=== PATIENT | male | born 1970 | race Caucasian/White ===

== ENCOUNTER → 2019-11-07 11:00 | Outpatient (BNVA) | payer MEDICARE, OTHER, SELFPAY | PROVIDERS: Family Provider Family Medicine; Visit Provider Nurse Practitioner Family | DX: I10 Essential (primary) hypertension (principal); E11.9 Type 2 diabetes mellitus without complications | CPT/HCPCS: 80053; 80061; 82043; 83036; 84439; 84443 ==

== ENCOUNTER → 2019-12-01 13:52 | Outpatient (BNVA) | payer MEDICARE, OTHER, SELFPAY | PROVIDERS: Family Provider Family Medicine; Visit Provider Nurse Practitioner Family | DX: N52.9 Male erectile dysfunction, unspecified (principal); Z12.5 Encounter for screening for malignant neoplasm of prostate | CPT/HCPCS: 84153; 84403 ==

== ENCOUNTER 2020-04-19 12:38 | Outpatient (CLI) | payer MEDICARE, OTHER, SELFPAY ==
--- NOTE | 2020-04-19 13:30 | USCV_ITS ---
Nicola Coyle Age: 50 Gender: M : 1970 Exam Date: 04/19/2020 13:19 Ordering Phys: Laron Erazo MD ([email or web address]) Technologist: Nicolette Pop Exam Location: [facility] [place] Indication: HISTORY OF CAD BP: 112 / 60 HR: 83 Rhythm: Sinus Technical Quality: Adequate MEASUREMENTS (Male / Female) Normal Values 2D ECHO LV Diastolic Diameter PLAX 4.2 cm 4.2 - 5.9 / 3.9 - 5.3 cm LV Systolic Diameter PLAX 3.2 cm LV Chamber Size 3.5 cm IVS Diastolic Thickness 1.4 cm 0.6 - 1.0 / 0.6 - 0.9 cm IVS Systolic Thickness 2.3 cm LVPW Diastolic Thickness 1.3 cm 0.6 - 1.0 / 0.6 - 0.9 cm LVPW Systolic Thickness 1.6 cm RV Chamber Size 2.7 cm LVOT Diameter 2.0 cm LV Ejection Fraction 2D Teich 48.5 % LV Ejection Fraction MOD 2C 56.9 % LV Ejection Fraction 2C AL 56.2 % LA Diameter 4.0 cm LA Width 2.6 cm LA Height 4.0 cm RA Width 2.6 cm RA Height 4.0 cm Aorta at Sinotubular Diameter 3.1 cm M-MODE LV Diastolic Diameter MM 5.6 cm 4.2 - 5.9 / 3.9 - 5.3 cm LV Systolic Diameter MM 2.9 cm LV Ejection Fraction MM Teich 79.4 % IVS Diastolic Thickness MM 0.8 cm 0.6 - 1.0 / 0.6 - 0.9 cm IVS Systolic Thickness MM 1.8 cm LVPW Diastolic Thickness MM 0.8 cm 0.6 - 1.0 / 0.6 - 0.9 cm LVPW Systolic Thickness MM 2.0 cm Aortic Annulus Diameter 3.5 cm LA Ao Ratio MM 1.2 MV E Point Septal Separation 0.5 cm DOPPLER AV Peak Velocity 115.0 cm/s LVOT Peak Velocity 78.0 cm/s AV Area Cont Eq vti 2.7 cm squared AV Area Cont Eq pk 2.2 cm squared MV Area PHT 4.9 cm squared Mitral E to A Ratio 0.8 MV E' Velocity 30.5 cm/s Mitral E to MV E' Ratio 6.5 Mitral E to LV E' Lateral Ratio 5.4 Mitral E to LV E' Septal Ratio 8.5 TR Peak Velocity 104.4 cm/s TR Peak Gradient 4.4 mmHg TR Mean Velocity 72.0 cm/s TR Mean Gradient 2.3 mmHg TR Velocity Time Integral 22.4 cm TV Peak E Velocity 70.0 cm/s Right Atrial Pressure 3.0 mmHg Pulmonary Artery Systolic Pressu 7.4 mmHg PV Peak Velocity 97.0 cm/s RV Acceleration Time 0.1 s RV Ejection Time 0.3 s RV AcT/ET 0.5 FINDINGS Left Ventricle Diffuse hypokinesia of the septum, inferior wall and the LV apex. LV ejection fraction around 45- 50%.Grade I/IV diastolic dysfunction (abnormal relaxation filling pattern), normal to mildly elevated filling pressures. Right Ventricle The right ventricle is normal in size and function. Right Atrium The right atrium is normal in size. Left Atrium The left atrium is normal in size. Mitral Valve Mild mitral annular calcification. Aortic Valve No gross abnormalities noted Tricuspid Valve No gross abnormalities noted Pulmonic Valve Pulmonic valve not well visualized. Pericardium Normal pericardium without effusion. Aorta Normal ascending aorta dimension. CONCLUSIONS Normal LV size with slightly diminished ejection fraction of 45 to 50%. Multiple wall motion normalities as mentioned above. Type I diastolic dysfunction. Mild mitral annular calcification. No significant stenotic or regurgitant lesions. There is no pericardial effusion. There are no intracardiac masses. No previous study is available for comparison. Dr Laron Erazo MD [facility] (Electronically Signed) Final Date: 19 April 2020 17:31 S
== END 2020-04-19 12:39 | disposition home or self-care (01) ==
LOC: US 12:39
PROVIDERS: PCP Nurse Practitioner; Visit Provider Internal Medicine Cardiovascular Disease
DX: R07.89 Other chest pain (principal); I25.10 Atherosclerotic heart disease of native coronary artery without angina pectoris
CPT/HCPCS: 93306

== ENCOUNTER → 2021-05-05 09:23 | Outpatient (BNVA) | payer MEDICARE, OTHER, SELFPAY | PROVIDERS: PCP Nurse Practitioner; Visit Provider Specialist | DX: M25.562 Pain in left knee (principal); Z96.651 Presence of right artificial knee joint | CPT/HCPCS: 73560; 73565 ==

== ENCOUNTER 2021-05-15 15:47 | Emergency (ER) | payer MEDICARE, OTHER, SELFPAY ==
[2021-05-15 16:05] VITALS: BP 127/85; PULSE 82; RESP 18; TEMP 36.9; O2SAT 97; BMI 30.8
--- NOTE | 2021-05-15 16:17 | ED_ITS ---
Documented by User: HELEN Turcios 05/15/21 16:20 HPI - Back Pain/Injury General: Chief Complaint: Back Pain/Injury Stated Complaint: Back/Neck pain Time Seen by Provider: 05/15/21 16:10 History of Present Illness: Patient states he received back injections from Dr. Mahan yesterday at the pain clinic. Patient said he received total 6 injections for his chronic back pain. He said it been many years previously had injections done never had a problem. Patient states today he woke up with severe back pain radiating all the way up to the spine and to his neck has a severe headache he says that he cannot turn his head without pain. He said he feels like some is trying to pull his spine out his body. Patient has been in contact Dr. Mahan's office x2 today and they told him come up to the ER. Associated symptoms: Deny abdominal pain, chills, fever(s), nausea or vomiting Review of Systems Narrative: Patient said he had chills today. Const: Denies: fever(s), chills or body aches Eyes: Denies: eye discomfort ENMT: Denies: throat pain Card: Denies: chest pain Resp: Denies: dyspnea GI: Denies: abdominal pain, nausea or vomiting Musc: Reports: neck pain (Not wanting to move neck.) and back pain (Says back hurts all way from the base all the way up into his neck and that) Skin/Breast: Denies: rash Neuro: Denies: headache(s) Psych: Denies: depression or suicidal ideation PFSH ED PFSH: Medical History Anxiety History of LA (myocardial infarction) History of polyneuropathy Hx of hyperlipidemia Insomnia disorder Lung nodule Rectal fistula Surgical History H/O total knee replacement History of foot surgery History of rectal surgery History of testicular surgery Hx of appendectomy Hx of shoulder surgery Hx of tonsillectomy Hx of umbilical hernia repair Family History Mother Cancer Diabetes Denies family history of CAD (coronary artery disease) Clotting disorder Dementia Chronic kidney disease (CKD) Suicide Anesthesia complication Bleeding disorder Lung disease Stroke Social History Smoking and tobacco status: current every day smoker cigarettes Packs smoked per day: 1 Alcohol intake: never Physical Exam Const: COMMON NORMALS: no acute distress, patient oriented x3 and alert HENMT: COMMON NORMALS: normocephalic and external ears normal HEAD & SCALP: normocephalic EXTERNAL EAR: Yes external ears normal Eye: COMMON NORMALS: EOMs intact bilaterally Neck/C-Spine: COMMON NORMALS: no JVD Resp: COMMON NORMALS: normal respiratory effort and No use of accessory muscles Cardio: COMMON NORMALS: no JVD GI: INSPECTION: Yes normal to inspection Back/Pelvis: GENERAL BACK: Yes other (Patient complains about tenderness all the way up and down his spine into h) Extremity: COMMON NORMALS: normal to inspection and full ROM Neuro: COMMON NORMALS: patient oriented x3 SENSORIUM/ORIENTATION: Yes alert Psych: COMMON NORMALS: mental status grossly normal Skin: COMMON NORMALS: no rashes or lesions noted GENERAL SKIN EXAM: no rashes or lesions noted Course Vital Signs: Vital signs: Vital Signs Temperature 98.5 F 05/15/21 16:05 Pulse Rate 69 05/15/21 22:33 Respiratory Rate 15 05/15/21 22:33 Blood Pressure 132/76 05/15/21 22:33 Pulse Oximetry 98 05/15/21 22:33 MDM - Back Pain/Injury Labs : 05/15/21 14:48 05/15/21 14:48 Radiology Impressions Lumbar Spine MRI 05/15/21 18:19 IMPRESSION: 1. Epidural space is unremarkable. No epidural hematoma or fluid collection demonstrated. 2. Spondylosis at L3-L4 results in mild spinal canal stenosis and mild bilateral neural foraminal stenosis. 3. Spondylosis at L4-L5 results in moderate spinal canal stenosis and moderate bilateral neural foraminal stenosis. 4. Spondylitic change at L5-S1 results in mild to moderate bilateral neural foraminal stenosis. No foraminal stenosis noted. Laboratory Results WBC 12.9 10^3/uL (4.0-10.0) H 05/15/21 14:48 RBC 5.30 10^6/uL (4.1-5.3) 05/15/21 14:48 Hgb 16.3 g/dL (11.7-16.6) 05/15/21 14:48 Hct 48.1 % (42.0-52.0) 05/15/21 14:48 MCV 90.8 fl (80-94) 05/15/21 14:48 MCH 30.8 pg (28.0-34.0) 05/15/21 14:48 MCHC 33.9 g/dL (30.0-36.0) 05/15/21 14:48 RDW 12.7 % (12.1-15.1) 05/15/21 14:48 Plt Count 379 10^3/cmm (130-400) 05/15/21 14:48 MPV 10.0 fL (7.4-10.4) 05/15/21 14:48 Neut % (Auto) 56.5 % 05/15/21 14:48 Lymph % (Auto) 34.5 % 05/15/21 14:48 [place] % (Auto) 6.4 % 05/15/21 14:48 Eos % (Auto) 1.7 % 05/15/21 14:48 Baso % (Auto) 0.6 % 05/15/21 14:48 Neut # (Auto) 7.27 10^3/uL (1.8-7.7) 05/15/21 14:48 Lymph # (Auto) 4.5 10^3/uL (0.8-4.8) 05/15/21 14:48 [place] # (Auto) 0.8 10^3/uL (0.2-0.9) 05/15/21 14:48 Eos # (Auto) 0.2 10^3/uL (0.0-0.8) 05/15/21 14:48 Baso # (Auto) 0.1 10^3/uL (0.0-0.1) 05/15/21 14:48 Nucleated RBC % (auto) 0 % 05/15/21 14:48 Nucleated RBCs # 0.0 /100WBC 05/15/21 14:48 Sodium 133 mmol/L (136-145) L 05/15/21 14:48 Potassium 5.0 mmol/L (3.5-5.1) 05/15/21 14:48 Chloride 95 mmol/L (98-107) L 05/15/21 14:48 Carbon Dioxide 26 mmol/L (22-29) 05/15/21 14:48 Anion Gap 17.0 (5-19) 05/15/21 14:48 BUN 26 mg/dL (6-20) H 05/15/21 14:48 Creatinine 1.4 mg/dL (0.7-1.2) H 05/15/21 14:48 GFR Calculation 53.6 mL/min (90-130) L 05/15/21 14:48 Glucose 155 mg/dL (65-115) H 05/15/21 14:48 Calculated Osmolality 284 mOsm/kg (285-295) L 05/15/21 14:48 Calcium 9.7 mg/dL (8.5-10.5) 05/15/21 14:48 C-Reactive Protein 24.1 mg/L (0.0-4.9) H 05/15/21 14:48 Urine Color Yellow (Yellow) 05/15/21 18:00 Urine Appearance Clear (CLEAR) 05/15/21 18:00 Urine pH 5 (5-7) 05/15/21 18:00 Ur Specific [place] 1.020 (1.005-1.030) 05/15/21 18:00 Urine Protein Neg (Negative) 05/15/21 18:00 Urine Glucose (UA) 4+ (Normal) H 05/15/21 18:00 Urine Ketones Negative (Negative) 05/15/21 18:00 Urine Blood Neg (Negative) 05/15/21 18:00 Urine Nitrate Negative (Negative) 05/15/21 18:00 Urine Bilirubin Neg (Negative) 05/15/21 18:00 Urine Urobilinogen 1 mg/dL (Negative) H 05/15/21 18:00 Ur Leukocyte Esterase Negative (Negative) 05/15/21 18:00 CSF Appearance Clear (CLEAR) 05/15/21 22:05 CSF Color Colorless (COLORLESS) 05/15/21 22:05 CSF WBC 3 /uL (0-5) 05/15/21 22:05 CSF RBC 0 10^3/uL (0-0) 05/15/21 22:05 CSF Mononuclear # Auto 0.003 10^3/uL (50-90) L 05/15/21 22:05 CSF Mononuclear WBCs % 100 % (50-90) H 05/15/21 22:05 CSF Polynuclear WBCs # 0.000 10^3/uL (0-10) 05/15/21 22:05 CSF Polynuclear WBCs % 0 % (0-10) 05/15/21 22:05 CSF Diff Comment Yes 05/15/21 22:05 CSF Glucose 111 mg/dL (40-70) H 05/15/21 22:05 CSF Total Protein 46 mg/dL (15-45) H 05/15/21 22:05 Discharge Plan Discharge Patient Disposition: Home Clinical Impression: Back pain Qualifiers: Back pain location: back pain in unspecified location Chronicity: acute Back pain laterality: midline Qualified Code(s): M54.9 - Dorsalgia, unspecified Condition: Stable Prescriptions: New cyclobenzaprine 10 mg tablet 10 mg PO TID Qty: 14 0RF hydrocodone-acetaminophen 5-325 mg tablet 1 tab PO Q4H PRN (Reason: pain) Qty: 14 0RF No Action acetaminophen [Tylenol] 325 mg capsule 325 mg PO DAILY PRN (Reason: Pain) 0RF metformin 1,000 mg tablet 1,000 mg PO BID Qty: 180 3RF sertraline 100 mg tablet 100 mg PO BID Qty: 90 3RF sildenafil [Viagra] 50 mg tablet 50 mg PO DAILY PRN (Reason: sexual activity) Qty: 30 0RF Rx Instructions: administer 30 minutes to 4 hours before activity ibuprofen 800 mg tablet 800 mg PO BID PRN (Reason: pain) Qty: 60 0RF ticagrelor 90 mg tablet 90 mg PO DAILY Qty: 90 3RF metoprolol tartrate 50 mg tablet 50 mg PO BID Qty: 180 3RF zolpidem [Ambien] 10 mg tablet 10 mg PO BEDTIME PRN (Reason: Insomnia) 0RF Label Comments: Take 1 tab po at bedtime glimepiride 2 mg tablet 2 mg PO DAILY 0RF atorvastatin 80 mg tablet 80 mg PO DAILY 0RF lisinopril 5 mg tablet 5 mg PO DAILY 0RF fenofibrate nanocrystallized 145 mg tablet 145 mg PO DAILY 0RF sitagliptin 100 mg tablet 100 mg PO DAILY 0RF Discharge Orders: Discharge ED (Routine); Ordered 05/15/21 Ordered By: Martha Wilkerson Referrals: Abelino Varma [facility] [Primary Care Provider] - Patient Instructions: Opioid Safety Coding Level of Care Code ED Nuclear Waste Management Engineer for Chg Fwd Exam Comprehensive Documented by User: ERASMO Mason 05/15/21 23:06 HPI - Back Pain/Injury General: Chief Complaint: Back Pain/Injury Stated Complaint: Back/Neck pain Time Seen by Provider: 05/15/21 16:10 PFSH ED PFSH: Medical History Anxiety History of LA (myocardial infarction) History of polyneuropathy Hx of hyperlipidemia Insomnia disorder Lung nodule Rectal fistula Surgical History H/O total knee replacement History of foot surgery History of rectal surgery History of testicular surgery Hx of appendectomy Hx of shoulder surgery Hx of tonsillectomy Hx of umbilical hernia repair Family History Mother Cancer Diabetes Denies family history of CAD (coronary artery disease) Clotting disorder Dementia Chronic kidney disease (CKD) Suicide Anesthesia complication Bleeding disorder Lung disease Stroke Social History Smoking and tobacco status: current every day smoker cigarettes Packs smoked per day: 1 Alcohol intake: never Course Vital Signs: Vital signs: Vital Signs Temperature 98.5 F 05/15/21 16:05 Pulse Rate 69 05/15/21 22:33 Respiratory Rate 15 05/15/21 22:33 Blood Pressure 132/76 05/15/21 22:33 Pulse Oximetry 98 05/15/21 22:33 MDM - Back Pain/Injury Medical Decision Making Assumed care from HELEN Turcios. Patient tells me he received lumbar injections from Dr. Mahan/pain management yesterday afternoon. He states around 2 AM that evening/morning he began having severe pain to his lower back and states it has progressively moved upward affecting his thoracic and cervical regions. He is currently rating these areas at a 9/10. In addition he also complains of a 5/10 headache. Patient has chronic lower back pain but has never had pain affecting his thoracic or cervical regions. He is not complaining of fevers. He is not having acute neurologic deficits. No visual changes. Previous provider had spoken to Dr. Landon and I to consulted with him after labs had returned. Dr. Landon assessed patient and we will plan on obtaining MRI of his lumbar spine to evaluate for epidural hematoma. Lumbar MRI shows no epidural hematoma or fluid collection. Dr. Landon recommended proceeding with LP which he performed. Please see his documentation and procedural note for this. After results he feels patient is stable for DC at this time with pain meds/muscle relaxers and follow up with pain management provider and/or PCP. Labs : 05/15/21 14:48 05/15/21 14:48 Radiology Impressions Lumbar Spine MRI 05/15/21 18:19 IMPRESSION: 1. Epidural space is unremarkable. No epidural hematoma or fluid collection demonstrated. 2. Spondylosis at L3-L4 results in mild spinal canal stenosis and mild bilateral neural foraminal stenosis. 3. Spondylosis at L4-L5 results in moderate spinal canal stenosis and moderate bilateral neural foraminal stenosis. 4. Spondylitic change at L5-S1 results in mild to moderate bilateral neural foraminal stenosis. No foraminal stenosis noted. Laboratory Results WBC 12.9 10^3/uL (4.0-10.0) H 05/15/21 14:48 RBC 5.30 10^6/uL (4.1-5.3) 05/15/21 14:48 Hgb 16.3 g/dL (11.7-16.6) 05/15/21 14:48 Hct 48.1 % (42.0-52.0) 05/15/21 14:48 MCV 90.8 fl (80-94) 05/15/21 14:48 MCH 30.8 pg (28.0-34.0) 05/15/21 14:48 MCHC 33.9 g/dL (30.0-36.0) 05/15/21 14:48 RDW 12.7 % (12.1-15.1) 05/15/21 14:48 Plt Count 379 10^3/cmm (130-400) 05/15/21 14:48 MPV 10.0 fL (7.4-10.4) 05/15/21 14:48 Neut % (Auto) 56.5 % 05/15/21 14:48 Lymph % (Auto) 34.5 % 05/15/21 14:48 [place] % (Auto) 6.4 % 05/15/21 14:48 Eos % (Auto) 1.7 % 05/15/21 14:48 Baso % (Auto) 0.6 % 05/15/21 14:48 Neut # (Auto) 7.27 10^3/uL (1.8-7.7) 05/15/21 14:48 Lymph # (Auto) 4.5 10^3/uL (0.8-4.8) 05/15/21 14:48 [place] # (Auto) 0.8 10^3/uL (0.2-0.9) 05/15/21 14:48 Eos # (Auto) 0.2 10^3/uL (0.0-0.8) 05/15/21 14:48 Baso # (Auto) 0.1 10^3/uL (0.0-0.1) 05/15/21 14:48 Nucleated RBC % (auto) 0 % 05/15/21 14:48 Nucleated RBCs # 0.0 /100WBC 05/15/21 14:48 Sodium 133 mmol/L (136-145) L 05/15/21 14:48 Potassium 5.0 mmol/L (3.5-5.1) 05/15/21 14:48 Chloride 95 mmol/L (98-107) L 05/15/21 14:48 Carbon Dioxide 26 mmol/L (22-29) 05/15/21 14:48 Anion Gap 17.0 (5-19) 05/15/21 14:48 BUN 26 mg/dL (6-20) H 05/15/21 14:48 Creatinine 1.4 mg/dL (0.7-1.2) H 05/15/21 14:48 GFR Calculation 53.6 mL/min (90-130) L 05/15/21 14:48 Glucose 155 mg/dL (65-115) H 05/15/21 14:48 Calculated Osmolality 284 mOsm/kg (285-295) L 05/15/21 14:48 Calcium 9.7 mg/dL (8.5-10.5) 05/15/21 14:48 C-Reactive Protein 24.1 mg/L (0.0-4.9) H 05/15/21 14:48 Urine Color Yellow (Yellow) 05/15/21 18:00 Urine Appearance Clear (CLEAR) 05/15/21 18:00 Urine pH 5 (5-7) 05/15/21 18:00 Ur Specific [place] 1.020 (1.005-1.030) 05/15/21 18:00 Urine Protein Neg (Negative) 05/15/21 18:00 Urine Glucose (UA) 4+ (Normal) H 05/15/21 18:00 Urine Ketones Negative (Negative) 05/15/21 18:00 Urine Blood Neg (Negative) 05/15/21 18:00 Urine Nitrate Negative (Negative) 05/15/21 18:00 Urine Bilirubin Neg (Negative) 05/15/21 18:00 Urine Urobilinogen 1 mg/dL (Negative) H 05/15/21 18:00 Ur Leukocyte Esterase Negative (Negative) 05/15/21 18:00 CSF Appearance Clear (CLEAR) 05/15/21 22:05 CSF Color Colorless (COLORLESS) 05/15/21 22:05 CSF WBC 3 /uL (0-5) 05/15/21 22:05 CSF RBC 0 10^3/uL (0-0) 05/15/21 22:05 CSF Mononuclear # Auto 0.003 10^3/uL (50-90) L 05/15/21 22:05 CSF Mononuclear WBCs % 100 % (50-90) H 05/15/21 22:05 CSF Polynuclear WBCs # 0.000 10^3/uL (0-10) 05/15/21 22:05 CSF Polynuclear WBCs % 0 % (0-10) 05/15/21 22:05 CSF Diff Comment Yes 05/15/21 22:05 CSF Glucose 111 mg/dL (40-70) H 05/15/21 22:05 CSF Total Protein 46 mg/dL (15-45) H 05/15/21 22:05 Discharge Plan Discharge Patient Disposition: Home Clinical Impression: Back pain Qualifiers: Back pain location: back pain in unspecified location Chronicity: acute Back pain laterality: midline Qualified Code(s): M54.9 - Dorsalgia, unspecified Condition: Stable Prescriptions: New cyclobenzaprine 10 mg tablet 10 mg PO TID Qty: 14 0RF hydrocodone-acetaminophen 5-325 mg tablet 1 tab PO Q4H PRN (Reason: pain) Qty: 14 0RF No Action acetaminophen [Tylenol] 325 mg capsule 325 mg PO DAILY PRN (Reason: Pain) 0RF metformin 1,000 mg tablet 1,000 mg PO BID Qty: 180 3RF sertraline 100 mg tablet 100 mg PO BID Qty: 90 3RF sildenafil [Viagra] 50 mg tablet 50 mg PO DAILY PRN (Reason: sexual activity) Qty: 30 0RF Rx Instructions: administer 30 minutes to 4 hours before activity ibuprofen 800 mg tablet 800 mg PO BID PRN (Reason: pain) Qty: 60 0RF ticagrelor 90 mg tablet 90 mg PO DAILY Qty: 90 3RF metoprolol tartrate 50 mg tablet 50 mg PO BID Qty: 180 3RF zolpidem [Ambien] 10 mg tablet 10 mg PO BEDTIME PRN (Reason: Insomnia) 0RF Label Comments: Take 1 tab po at bedtime glimepiride 2 mg tablet 2 mg PO DAILY 0RF atorvastatin 80 mg tablet 80 mg PO DAILY 0RF lisinopril 5 mg tablet 5 mg PO DAILY 0RF fenofibrate nanocrystallized 145 mg tablet 145 mg PO DAILY 0RF sitagliptin 100 mg tablet 100 mg PO DAILY 0RF Discharge Orders: Discharge ED (Routine); Ordered 05/15/21 Ordered By: Martha Wilkerson Referrals: Abelino Varma, [facility] [Primary Care Provider] - Patient Instructions: Opioid Safety Coding Level of Care Code ED Nuclear Waste Management Engineer for g Fwd Exam Comprehensive Documented by User: Jermain Landon MD 05/21/21 00:03 HPI - Back Pain/Injury General: Chief Complaint: Back Pain/Injury Stated Complaint: Back/Neck pain Time Seen by Provider: 05/15/21 16:10 PFSH ED PFSH: Medical History Anxiety History of LA (myocardial infarction) History of polyneuropathy Hx of hyperlipidemia Insomnia disorder Lung nodule Rectal fistula Surgical History H/O total knee replacement History of foot surgery History of rectal surgery History of testicular surgery Hx of appendectomy Hx of shoulder surgery Hx of tonsillectomy Hx of umbilical hernia repair Family History Mother Cancer Diabetes Denies family history of CAD (coronary artery disease) Clotting disorder Dementia Chronic kidney disease (CKD) Suicide Anesthesia complication Bleeding disorder Lung disease Stroke Social History Smoking and tobacco status: current every day smoker cigarettes Packs smoked per day: 1 Alcohol intake: never Procedures Lumbar Puncture Time Out Performed: Yes Patient Position: upright Skin Prep: 0.5% Chlorhexidine/Alcohol Local Anesthetic: lidocaine 1% Amount of anesthesia used (mL): 3 Spinal Needle Gauge: 22G Interspace Used: L3-L4 Fluid Initially Obtained: clear Complications: none Additional Comments: patient has held ticagrelor in preparation for previous days injections Course Vital Signs: Vital signs: Vital Signs Temperature 98.5 F 05/15/21 16:05 Pulse Rate 69 05/15/21 22:33 Respiratory Rate 15 05/15/21 22:33 Blood Pressure 132/76 05/15/21 22:33 Pulse Oximetry 98 05/15/21 22:33 MDM - Back Pain/Injury Medical Decision Making Assumed care from HELEN Turcios. Patient tells me he received lumbar injections from Dr. Mahan/pain management yesterday afternoon. He states around 2 AM that evening/morning he began having severe pain to his lower back and states it has progressively moved upward affecting his thoracic and cervical regions. He is currently rating these areas at a 9/10. In addition he also complains of a 5/10 headache. Patient has chronic lower back pain but has never had pain affecting his thoracic or cervical regions. He is not complaining of fevers. He is not having acute neurologic deficits. No visual changes. Previous provider had spoken to Dr. Landon and I to consulted with him after labs had returned. Dr. Landon assessed patient and we will plan on obtaining MRI of his lumbar spine to evaluate for epidural hematoma. Lumbar MRI shows no epidural hematoma or fluid collection. Dr. Landon recommended proceeding with LP which he performed. Please see his documentation and procedural note for this. After results he feels patient is stable for DC at this time with pain meds/muscle relaxers and follow up with pain management provider and/or PCP. I discussed this case with ERASMO Mason and Wiley Davis NP. I personally evaluated the patient and reperformed guerin portions of E/M. Challenging situation given the patient's recent injections. Given severity of symptoms I discussed with the patient potential etiologies. He does have leukocytosis and elevation in inflammatory markers. I discussed risks and benefits of lumbar puncture and patient provided informed consent. However, given recent procedure additional evaluation with imaging felt to be necessary to rule out complication associated with these injections. MRI is the only modality that can adequately assess this and given risk of post injection was collection mostly obtained prior to lumbar puncture. Given risk of meningitis as a time critical diagnosis MRI was obtained from the emergency department. No evidence of post injection complication. Therefore, lumbar puncture performed. Patient tolerated procedure well. No evidence of meningitis. Exact etiology of patient's symptoms is somewhat unclear. ?adverse reaction to local injections. Jermain Landon MD Emergency Medicine Labs : 05/15/21 14:48 05/15/21 14:48 Radiology Impressions Lumbar Spine MRI 05/15/21 18:19 IMPRESSION: 1. Epidural space is unremarkable. No epidural hematoma or fluid collection demonstrated. 2. Spondylosis at L3-L4 results in mild spinal canal stenosis and mild bilateral neural foraminal stenosis. 3. Spondylosis at L4-L5 results in moderate spinal canal stenosis and moderate bilateral neural foraminal stenosis. 4. Spondylitic change at L5-S1 results in mild to moderate bilateral neural foraminal stenosis. No foraminal stenosis noted. Laboratory Results WBC 12.9 10^3/uL (4.0-10.0) H 05/15/21 14:48 RBC 5.30 10^6/uL (4.1-5.3) 05/15/21 14:48 Hgb 16.3 g/dL (11.7-16.6) 05/15/21 14:48 Hct 48.1 % (42.0-52.0) 05/15/21 14:48 MCV 90.8 fl (80-94) 05/15/21 14:48 MCH 30.8 pg (28.0-34.0) 05/15/21 14:48 MCHC 33.9 g/dL (30.0-36.0) 05/15/21 14:48 RDW 12.7 % (12.1-15.1) 05/15/21 14:48 Plt Count 379 10^3/cmm (130-400) 05/15/21 14:48 MPV 10.0 fL (7.4-10.4) 05/15/21 14:48 Neut % (Auto) 56.5 % 05/15/21 14:48 Lymph % (Auto) 34.5 % 05/15/21 14:48 [place] % (Auto) 6.4 % 05/15/21 14:48 Eos % (Auto) 1.7 % 05/15/21 14:48 Baso % (Auto) 0.6 % 05/15/21 14:48 Neut # (Auto) 7.27 10^3/uL (1.8-7.7) 05/15/21 14:48 Lymph # (Auto) 4.5 10^3/uL (0.8-4.8) 05/15/21 14:48 [place] # (Auto) 0.8 10^3/uL (0.2-0.9) 05/15/21 14:48 Eos # (Auto) 0.2 10^3/uL (0.0-0.8) 05/15/21 14:48 Baso # (Auto) 0.1 10^3/uL (0.0-0.1) 05/15/21 14:48 Nucleated RBC % (auto) 0 % 05/15/21 14:48 Nucleated RBCs # 0.0 /100WBC 05/15/21 14:48 Sodium 133 mmol/L (136-145) L 05/15/21 14:48 Potassium 5.0 mmol/L (3.5-5.1) 05/15/21 14:48 Chloride 95 mmol/L (98-107) L 05/15/21 14:48 Carbon Dioxide 26 mmol/L (22-29) 05/15/21 14:48 Anion Gap 17.0 (5-19) 05/15/21 14:48 BUN 26 mg/dL (6-20) H 05/15/21 14:48 Creatinine 1.4 mg/dL (0.7-1.2) H 05/15/21 14:48 GFR Calculation 53.6 mL/min (90-130) L 05/15/21 14:48 Glucose 155 mg/dL (65-115) H 05/15/21 14:48 Calculated Osmolality 284 mOsm/kg (285-295) L 05/15/21 14:48 Calcium 9.7 mg/dL (8.5-10.5) 05/15/21 14:48 C-Reactive Protein 24.1 mg/L (0.0-4.9) H 05/15/21 14:48 Urine Color Yellow (Yellow) 05/15/21 18:00 Urine Appearance Clear (CLEAR) 05/15/21 18:00 Urine pH 5 (5-7) 05/15/21 18:00 Ur Specific [place] 1.020 (1.005-1.030) 05/15/21 18:00 Urine Protein Neg (Negative) 05/15/21 18:00 Urine Glucose (UA) 4+ (Normal) H 05/15/21 18:00 Urine Ketones Negative (Negative) 05/15/21 18:00 Urine Blood Neg (Negative) 05/15/21 18:00 Urine Nitrate Negative (Negative) 05/15/21 18:00 Urine Bilirubin Neg (Negative) 05/15/21 18:00 Urine Urobilinogen 1 mg/dL (Negative) H 05/15/21 18:00 Ur Leukocyte Esterase Negative (Negative) 05/15/21 18:00 CSF Appearance Clear (CLEAR) 05/15/21 22:05 CSF Color Colorless (COLORLESS) 05/15/21 22:05 CSF WBC 3 /uL (0-5) 05/15/21 22:05 CSF RBC 0 10^3/uL (0-0) 05/15/21 22:05 CSF Mononuclear # Auto 0.003 10^3/uL (50-90) L 05/15/21 22:05 CSF Mononuclear WBCs % 100 % (50-90) H 05/15/21 22:05 CSF Polynuclear WBCs # 0.000 10^3/uL (0-10) 05/15/21 22:05 CSF Polynuclear WBCs % 0 % (0-10) 05/15/21 22:05 CSF Diff Comment Yes 05/15/21 22:05 CSF Glucose 111 mg/dL (40-70) H 05/15/21 22:05 CSF Total Protein 46 mg/dL (15-45) H 05/15/21 22:05 Discharge Plan Discharge Patient Disposition: Home Clinical Impression: Back pain Qualifiers: Back pain location: back pain in unspecified location Chronicity: acute Back pain laterality: midline Qualified Code(s): M54.9 - Dorsalgia, unspecified Condition: Stable Prescriptions: New cyclobenzaprine 10 mg tablet 10 mg PO TID Qty: 14 0RF hydrocodone-acetaminophen 5-325 mg tablet 1 tab PO Q4H PRN (Reason: pain) Qty: 14 0RF No Action acetaminophen [Tylenol] 325 mg capsule 325 mg PO DAILY PRN (Reason: Pain) 0RF metformin 1,000 mg tablet 1,000 mg PO BID Qty: 180 3RF sertraline 100 mg tablet 100 mg PO BID Qty: 90 3RF sildenafil [Viagra] 50 mg tablet 50 mg PO DAILY PRN (Reason: sexual activity) Qty: 30 0RF Rx Instructions: administer 30 minutes to 4 hours before activity ibuprofen 800 mg tablet 800 mg PO BID PRN (Reason: pain) Qty: 60 0RF ticagrelor 90 mg tablet 90 mg PO DAILY Qty: 90 3RF metoprolol tartrate 50 mg tablet 50 mg PO BID Qty: 180 3RF zolpidem [Ambien] 10 mg tablet 10 mg PO BEDTIME PRN (Reason: Insomnia) 0RF Label Comments: Take 1 tab po at bedtime glimepiride 2 mg tablet 2 mg PO DAILY 0RF atorvastatin 80 mg tablet 80 mg PO DAILY 0RF lisinopril 5 mg tablet 5 mg PO DAILY 0RF fenofibrate nanocrystallized 145 mg tablet 145 mg PO DAILY 0RF sitagliptin 100 mg tablet 100 mg PO DAILY 0RF Discharge Orders: Discharge ED (Routine); Ordered 05/15/21 Ordered By: Martha Wilkerson Referrals: Abelino Varma FNP [Primary Care Provider] - Patient Instructions: Opioid Safety Coding Level of Care Code ED Nuclear Waste Management Engineer for Chg Fwd Exam Comprehensive
[2021-05-15] MEDS: acetaminophen 1,000 MG/100 ML PIGGYBACK 400 MG IV (16:55)
[2021-05-15 17:00] LABS: Basophils # 0.1 10^3/uL (0.0-0.1); Basophils % 0.6 %; Eosinophils # 0.2 10^3/uL (0.0-0.8); Eosinophils % 1.7 %; Hematocrit 48.1 % (42.0-52.0); Hemoglobin 16.3 g/dL (11.7-16.6); Lymphocytes # 4.5 10^3/uL (0.8-4.8); Lymphocytes % 34.5 %; Mean Corpuscular HGB Conc 33.9 g/dL (30.0-36.0); Mean Corpuscular Hemoglobin 30.8 pg (28.0-34.0); Mean Corpuscular Volume 90.8 fl (80-94); Monocytes # 0.8 10^3/uL (0.2-0.9); Monocytes % 6.4 %; Neutrophils # 7.27 10^3/uL (1.8-7.7); Neutrophils % 56.5 %; Nucleated Red Blood Cells % 0 %; Platelet Count 379 10^3/cmm (130-400); Red Cell Distribution Width 12.7 % (12.1-15.1); White Blood Count 12.9 10^3/uL (4.0-10.0)
[2021-05-15 17:12] LABS: Blood Urea Nitrogen 26 mg/dL (6-20); C Reactive Protein 24.1 mg/L (0.0-4.9); Calcium 9.7 mg/dL (8.5-10.5); Carbon Dioxide 26 mmol/L (22-29); Chloride 95 mmol/L (98-107); Glomerular Filtration Rate 53.6 mL/min (90-130); Glucose 155 mg/dL (65-115); Osmolality Calculated 284 mOsm/kg (285-295); Sodium 133 mmol/L (136-145)
--- NOTE | 2021-05-15 18:19 | MRR_ITS ---
PROCEDURE INFORMATION: Exam: MR Lumbar Spine Without Contrast Exam date and time: 05/15/2021 7:52 PM Age: 51 years old Clinical indication: Low back pain; Additional info: Severe back pain post injections, R/O fluid/complication, patient refused mri contrast - no contrast given eh TECHNIQUE: Imaging protocol: Multiplanar magnetic resonance images of the lumbar spine without intravenous contrast. COMPARISON: No relevant prior studies available. FINDINGS: Vertebrae: Unremarkable. Spinal epidural space: Epidural space is unremarkable. No epidural hematoma or fluid collection demonstrated. Spinal cord: Normal signal. No cord compression. T12-L1: Normal disc height and signal intensity. No disc bulge or protrusion. No spinal canal or neural foraminal stenosis. L1-L2: Normal disc height and signal intensity. No disc bulge or protrusion. No spinal canal or neural foraminal stenosis. L2-L3: Normal disc height and signal intensity. No disc bulge or protrusion. Mild hypertrophic facet joint changes. No spinal canal or neural foraminal stenosis. L3-L4: Normal disc height and signal intensity. No disc bulge or protrusion. Hypertrophic facet joint changes are noted. There is mild spinal canal stenosis and mild bilateral neural foraminal stenosis associated. No spinal canal or neural foraminal stenosis. L4-L5: Normal disc height. No disc bulge. Hypertrophic facet joint changes and redundancy of the ligamentum flavum noted. Moderate spinal stenosis and moderate bilateral neural foraminal stenosis noted. L5-S1: Normal disc height. No disc bulge or protrusion. Hypertrophic facet joint changes. No spinal canal stenosis. Mild to moderate bilateral neural foraminal stenosis noted. Soft tissues: Unremarkable. MR/MR lumbar spine wo con* [id number] IMPRESSION: 1. Epidural space is unremarkable. No epidural hematoma or fluid collection demonstrated. 2. Spondylosis at L3-L4 results in mild spinal canal stenosis and mild bilateral neural foraminal stenosis. 3. Spondylosis at L4-L5 results in moderate spinal canal stenosis and moderate bilateral neural foraminal stenosis. 4. Spondylitic change at L5-S1 results in mild to moderate bilateral neural foraminal stenosis. No foraminal stenosis noted.
[2021-05-15 18:59] VITALS: BP 128/78; PULSE 67; RESP 15; O2SAT 100
[2021-05-15 19:06] LABS: Add Urine Microscopic? NO; Charge for UA Resulting for Rev
[2021-05-15 19:08] VITALS: RESP 18
[2021-05-15] MEDS: morphine 4 mg/mL SDV 1 mL IVP ×2 (19:08→21:51)
[2021-05-15 19:18] LABS: Bilirubin Urine Neg (Negative); Blood Urine Neg (Negative); Glucose Urine UA 4+ (Normal); Ketones Urine Negative (Negative); Leukocyte Esterase Urine Negative (Negative); Nitrate Urine Negative (Negative); Protein Urine Neg (Negative); Urine Appearance Clear (CLEAR); Urine Color Yellow (Yellow); Urobilinogen Urine 1 mg/dL (Negative); pH Urine 5 (5-7)
[2021-05-15 21:51] VITALS: RESP 16; O2SAT 98
[2021-05-15 21:53] VITALS: BP 161/96; PULSE 86; RESP 16; O2SAT 99
[2021-05-15 22:22] LABS: CSF Mononuclear # 0.003 10^3/uL (50-90); Mononuclear WBC CSF % 100 % (50-90); Polynuclear WBC CSF % 0 % (0-10); Red Blood Cell CSF 0 10^3/uL (0-0); White Blood Cell CSF 3 /uL (0-5)
[2021-05-15 22:33] VITALS: BP 132/76; PULSE 69; RESP 15; O2SAT 98
[2021-05-15 22:33] LABS: Appearance CSF CLEAR (CLEAR); Color CSF COLORLESS (COLORLESS)
[2021-05-15 22:39] LABS: Glucose CSF 111 mg/dL (40-70); Total Protein CSF 46 mg/dL (15-45)
[2021-05-15 23:03] LABS: Pathology Referral Yes
[2021-05-15] MEDS: HYDROcodone-acetaminophen 5-325 mg Tablet 2 TAB PO (23:14)
== END 2021-05-15 23:32 | disposition home or self-care (01) ==
PROVIDERS: Emergency Medicine; Nurse Practitioner Family; Emergency Provider Physician Assistant; PCP Nurse Practitioner
DX: M54.9 Dorsalgia, unspecified (principal); Z79.84 Long term (current) use of oral hypoglycemic drugs; I25.2 Old myocardial infarction; E78.5 Hyperlipidemia, unspecified; F17.210 Nicotine dependence, cigarettes, uncomplicated
CPT/HCPCS: 72148; 80048; 80503; 81003; 82945; 84157; 85025; 86140; 87070; 87075; 87205; 88108; 89050; 96374; 96375; 96376; 99284; J2270

== ENCOUNTER 2021-06-12 06:01 | Day surgery (SDC) | payer MEDICARE, OTHER, SELFPAY ==
[2021-06-10 08:23] VITALS: BMI 31.5
[2021-06-12 06:21] VITALS: BP 142/79; PULSE 81; RESP 18; TEMP 36.3; O2SAT 97
[2021-06-12] MEDS: sodium chloride 0.9% 1,000 ML 30 ML IV (06:25)
--- NOTE | 2021-06-12 06:27 | W.PM.OPSFHP ---
Same Day Surgery H&P Indication for Procedure/HPI DATE OF PROCEDURE: June 12, 2021 CHIEF COMPLAINT/INDICATIONFOR SURGICAL PROCEDURE: History of colon polyps PREOP DIAGNOSIS: History of colon polyps PLANNED PROCEDURE: Operation Date: 06/12/21 07:30 Proposed Procedures p Colonoscopy 90205/z86.010(Not Applicable) - Jorge Alberto Scales MD 03/24/2021 This is a pleasant 51 years old gentleman with extensive history of colon polyps, so far he had 4 colonoscopies in back in 2007 he had a large tubular adenoma per his description and he would get every 3 years surveillance colonoscopy.? Patient denies bleeding per rectum or history of colon cancer nonintentional weight loss.? Last colonoscopy was done about 3 years and a half and 6 polyps were removed. 06/12/2021 Patient comes today for surveillance colonoscopy ROS All systems have been reviewed negative except as per the above or per problem list Medications/Allergies* Home Medications Medication Instructions Recorded Confirmed Type acetaminophen 325 mg capsule 325 mg PO DAILY PRN 03/21/19 06/10/21 History (Tylenol) zolpidem 10 mg tablet (Ambien) 10 mg PO BEDTIME PRN tab 05/05/21 06/10/21 History atorvastatin 80 mg tablet 80 mg PO DAILY 05/15/21 06/10/21 History fenofibrate nanocrystallized 145 145 mg PO DAILY 05/15/21 06/10/21 History mg tablet glimepiride 2 mg tablet 2 mg PO DAILY 05/15/21 06/10/21 History lisinopril 5 mg tablet 5 mg PO DAILY 05/15/21 06/10/21 History sitagliptin 100 mg tablet (Januvia) 100 mg PO DAILY 05/15/21 06/10/21 History ticagrelor 90 mg tablet (Brilinta) 90 mg PO DAILY 06/10/21 06/10/21 History Allergies/Adverse Reactions Allergy/AdvReac Type Severity Reaction Status Date / Time Iodinated Contrast Media Allergy Severe ALGY-Anaphy Verified 06/12/21 06:28 laxis penicillamine Allergy Severe ALGY-Anaphy Verified 06/12/21 06:28 laxis quetiapine [From Seroquel] Allergy Unknown Verified 06/12/21 06:28 calcium [From DHEA] AdvReac Intermediate tachycardia Verified 06/12/21 06:28 calcium carbonate [From DHEA] AdvReac Intermediate tachycardia Verified 06/12/21 06:28 chlorpromazine AdvReac Intermediate tachycardia Verified 06/12/21 06:28 [From Thorazine] ketorolac [From Toradol] AdvReac Intermediate High HR Verified 06/12/21 06:28 prasterone (DHEA) [From DHEA] AdvReac Intermediate tachycardia Verified 06/12/21 06:28 simvastatin [From Zocor] AdvReac Intermediate elevated Verified 06/12/21 06:28 lft Sulfa (Sulfonamide AdvReac Intermediate Nausea Verified 06/12/21 06:28 Antibiotics) diarrhea Pertinent History/Comorbid Conditions* Medical History (Updated 05/23/21 @ 00:01 by ) Anxiety History of RI (myocardial infarction) History of polyneuropathy Hx of hyperlipidemia Insomnia disorder Lung nodule Rectal fistula Surgical History (Updated 03/25/20 @ 15:11 by Laron Erazo MD) H/O total knee replacement History of foot surgery History of rectal surgery History of testicular surgery Hx of appendectomy Hx of shoulder surgery Hx of tonsillectomy Hx of umbilical hernia repair Family History (Updated 03/25/20 @ 14:41 by Elaine Hinojosa RN) Diabetes Mother Cancer Mother Denies family history of CAD (coronary artery disease) Clotting disorder Dementia Chronic kidney disease (CKD) Suicide Anesthesia complication Bleeding disorder Lung disease Stroke Social History Smoking and tobacco status: current every day smoker cigarettes Packs smoked per day: 1 Alcohol intake: never Pertinent Exam Findings alert, oriented x 3, regular rate & rhythm and procedure specific exam findings (Abdominal examination nontender nondistended soft) Recommendations Surgery/Procedure today (Surveillance colonoscopy) Coding Level of Care Code 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
--- NOTE | 2021-06-12 06:53 | ANES.PREANE2 ---
Pre-Anesthetic Assessment Height/Weight: Height 1.78 m Weight 99.79 kg Temp Pulse Resp BP Pulse Ox 97.4 F L 81 18 142/79 97 06/12/21 06:21 06/12/21 06:21 06/12/21 06:21 06/12/21 06:21 06/12/21 06:21 Preop Diagnosis: History of colon polyps Operation Date: 06/12/21 07:30 Proposed Procedures p Colonoscopy 71958/z86.010(Not Applicable) - Jorge Alberto Scales MD Was Beta Jordan taken within 24 hours: Yes Last intake: Intake Last Liquid Date 06/11/21 Last Liquid Time 22:00 Last Solid Date 06/10/21 Last Solid Time 17:30 Last Intake: 22:00 Social Tobacco 1 ppd pack(s) per day 35 pack years Exam alert Airway Submandibular: within normal limits Cervical ROM: within normal limits Mallampati: Class II Dentition: false Comments: Comments: only two top; full dentures out History/ROS No significant history except as noted Pulmonary Chronic Obstructive Pulmonary Disease CV/HEM Myocardial Infarction (2018 stent; hx of 5 OK; no current CP) None reported Hepatic None reported GI None reported Metabolic Diabetes Mellitus oral meds Musc/skel Lower Back Pain Neuropsych Depression closed head injury, PTSD Anesthetic Plan ASA status: 3 Anesthesia: MAC Risk of > 500 ml blood loss (7ml/kg in children): No Medications/Allergies Home Medications Medication Instructions Recorded Confirmed Last Taken Type acetaminophen 325 mg capsule 325 mg PO DAILY PRN 03/21/19 06/10/21 06/11/21 10:00 History (Tylenol) metformin 1,000 mg tablet 1,000 mg PO BID #180 tab 11/07/19 06/10/21 06/11/21 10:00 Rx sertraline 100 mg tablet 100 mg PO BID #90 tab 11/07/19 06/10/21 06/11/21 10:00 Rx ibuprofen 800 mg tablet 800 mg PO BID PRN #60 tab 12/01/19 06/10/21 Unknown Rx sildenafil 50 mg tablet (Viagra) 50 mg PO DAILY PRN #30 tab 12/01/19 06/10/21 Unknown Rx metoprolol tartrate 50 mg tablet 50 mg PO BID #180 tab 01/23/21 06/10/21 06/11/21 10:00 Rx zolpidem 10 mg tablet (Ambien) 10 mg PO BEDTIME PRN tab 05/05/21 06/10/21 Unknown History atorvastatin 80 mg tablet 80 mg PO DAILY 05/15/21 06/10/21 06/11/21 10:00 History fenofibrate nanocrystallized 145 145 mg PO DAILY 05/15/21 06/10/21 06/11/21 10:00 History mg tablet glimepiride 2 mg tablet 2 mg PO DAILY 05/15/21 06/10/21 06/11/21 10:00 History hydrocodone 5 mg-acetaminophen 325 1 tab PO Q4H PRN #14 tab 05/15/21 06/10/21 06/11/21 10:00 Rx mg tablet lisinopril 5 mg tablet 5 mg PO DAILY 05/15/21 06/10/21 06/11/21 10:00 History sitagliptin 100 mg tablet (Januvia) 100 mg PO DAILY 05/15/21 06/10/21 06/11/21 10:00 History ticagrelor 90 mg tablet (Brilinta) 90 mg PO DAILY 06/10/21 06/10/21 06/11/21 10:00 History Allergies Allergy/AdvReac Type Severity Reaction Status Date / Time Iodinated Contrast Media Allergy Severe ALGY-Anaphy Verified 06/12/21 06:28 laxis penicillamine Allergy Severe ALGY-Anaphy Verified 06/12/21 06:28 laxis quetiapine [From Seroquel] Allergy Unknown Verified 06/12/21 06:28 calcium [From DHEA] AdvReac Intermediate tachycardia Verified 06/12/21 06:28 calcium carbonate [From DHEA] AdvReac Intermediate tachycardia Verified 06/12/21 06:28 chlorpromazine AdvReac Intermediate tachycardia Verified 06/12/21 06:28 [From Thorazine] ketorolac [From Toradol] AdvReac Intermediate High HR Verified 06/12/21 06:28 prasterone (DHEA) [From DHEA] AdvReac Intermediate tachycardia Verified 06/12/21 06:28 simvastatin [From Zocor] AdvReac Intermediate elevated Verified 06/12/21 06:28 lft Sulfa (Sulfonamide AdvReac Intermediate Nausea Verified 06/12/21 06:28 Antibiotics) diarrhea Current Medications Generic Name Dose Route Start Last Admin Trade Name Freq PRN Reason Stop Dose Admin Sodium Chloride 1,000 mls @ 30 mls/hr 06/12/21 06:15 06/12/21 06:25 Sodium Chloride 0.9% IV 30 mls/hr .Q24H TIA Administration PFSH Anesthesia Medical History Anxiety History of [place] (myocardial infarction) History of polyneuropathy Hx of hyperlipidemia Insomnia disorder Lung nodule Rectal fistula Surgical History H/O total knee replacement History of foot surgery History of rectal surgery History of testicular surgery Hx of appendectomy Hx of shoulder surgery Hx of tonsillectomy Hx of umbilical hernia repair Family History Mother Cancer Diabetes Denies family history of CAD (coronary artery disease) Clotting disorder Dementia Chronic kidney disease (CKD) Suicide Anesthesia complication Bleeding disorder Lung disease Stroke Social History Smoking and tobacco status: current every day smoker cigarettes Packs smoked per day: 1 Alcohol intake: never Data Anesthesia Cardiac Studies: Echocardiogram Ultrasound 04/19/20
--- NOTE | 2021-06-12 07:07 | ECG_ITS ---
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 Measurements Intervals [place] Rate: 72 P: 56 [place]: 163 QRS: -30 QRSD: 103 T: 57 QT: 387 QTc: 425 Interpretive Statements SINUS RHYTHM WITH OCCASIONAL VENTRICULAR PREMATURE COMPLEXES LOW QRS VOLTAGE IN PRECORDIAL LEADS [QRS DEFLECTION < 1.0 mV IN CHEST LEADS] INCOMPLETE RIGHT BUNDLE BRANCH BLOCK [90+ ms QRS DURATION, TERMINAL R IN V1/V2, 40+ ms S IN I/aVL/V4/V5/V6] POSSIBLE ANTERIOR MYOCARDIAL INFARCTION , PROBABLY OLD [30 ms Q WAVE IN V3/V4, OR R < 0.2 mV IN V4] No previous ECG available for comparison Electronically Signed On 06-13-2021 6:14:36 CDT by Senia Granados M.D. [email or web address] [facility]/store/[id number]
[2021-06-12 07:49] VITALS: BP 108/64; PULSE 75; RESP 18; TEMP 36.2; O2SAT 95
[2021-06-12 07:56] VITALS: BP 114/54; PULSE 77; RESP 18; TEMP 36; O2SAT 98
--- NOTE | 2021-06-12 14:49 | ANE.PACU2 ---
Inpatient post-anesthesia follow up: Airway intact: Yes Vital signs: Temperature 96.8 F Pulse Rate 77 Respiratory Rate 18 Blood Pressure 114/54 Pulse Oximetry 98 Oxygen Delivery Me thod Room Air Oxygen Flow Rate Fraction of Inspir ed Oxygen Hydration adequate: Yes Nausea and vomiting: No Pain level: 1 Mental status: Baseline
== END 2021-06-12 08:09 | disposition home or self-care (01) ==
PROVIDERS: PCP Nurse Practitioner; Visit Provider Surgery
PROC: 0DJD8ZZ Inspection of Lower Intestinal Tract, Via Natural or Artificial Opening Endoscopic (ICD-10-PCS; CPT 45378; principal; 2021-06-12 07:30)
DX: Z12.11 Encounter for screening for malignant neoplasm of colon (principal); Z86.010 Personal history of colon polyps; D12.4 Benign neoplasm of descending colon; F41.9 Anxiety disorder, unspecified; I25.2 Old myocardial infarction; E78.5 Hyperlipidemia, unspecified; F17.210 Nicotine dependence, cigarettes, uncomplicated; J44.9 Chronic obstructive pulmonary disease, unspecified; Z95.5 Presence of coronary angioplasty implant and graft; Z79.84 Long term (current) use of oral hypoglycemic drugs
CPT/HCPCS: 45385; 88305; 93005; J2704; J7030

== ENCOUNTER → 2021-06-26 16:14 | Outpatient (BNVA) | payer MEDICARE, OTHER, SELFPAY | PROVIDERS: PCP Nurse Practitioner; Visit Provider Surgery | DX: Z86.010 Personal history of colon polyps (principal) | CPT/HCPCS: 99213 ==

== ENCOUNTER 2021-08-28 15:10 | Inpatient (IN) | payer MEDICARE, OTHER, SELFPAY ==
[2021-08-28] VITALS (9 sets, daily range): BP systolic 116–162; BP diastolic 73–106; PULSE 65–95; RESP 12–18; TEMP 36.5–36.6; O2SAT 92–99; BMI 28.7
--- NOTE | 2021-08-28 15:29 | W.ED.CHESTPA ---
HPI - Chest Pain General: Chief Complaint: Chest Pain Stated Complaint: cp, sob Time Seen by Provider: 08/28/21 15:28 History of Present Illness: 51-year-old with history of CAD presents with chest pain. It started around noon. Does report some shortness of breath and nausea but no vomiting. Denies any abdominal pain. States the pain is achy nonexertional nonpleuritic and does not radiate into his back. States this does feel similar to CAD pain that he has had in the past requiring stents. Denies any lower extremity pain or swelling. Denies any fevers or chills. Review of Systems Narrative: - CONSTITUTIONAL: Denies weight loss, fever and chills. - HEENT: Denies changes in vision and hearing. - RESPIRATORY: As above - CV: As above - GI: As above - : Denies dysuria and urinary frequency. - MSK: Denies myalgia and joint pain. - SKIN: Denies rash and pruritus. - NEUROLOGICAL: Denies headache, weakness, numbness and syncope. - PSYCHIATRIC: Denies suicidal ideation COUNTS INCLUDE 234 BEDS AT THE [facility] ED PFSH: Medical History Anxiety History of PR (myocardial infarction) History of polyneuropathy Hx of hyperlipidemia Insomnia disorder Lung nodule Rectal fistula Surgical History H/O total knee replacement History of foot surgery History of rectal surgery History of testicular surgery Hx of appendectomy Hx of shoulder surgery Hx of tonsillectomy Hx of umbilical hernia repair Family History Mother Cancer Diabetes Denies family history of CAD (coronary artery disease) Clotting disorder Dementia Chronic kidney disease (CKD) Suicide Anesthesia complication Bleeding disorder Lung disease Stroke Social History Smoking and tobacco status: current every day smoker cigarettes Packs smoked per day: 1 Alcohol intake: never Physical Exam Narrative: EXAM NARRATIVE: - GENERAL: Alert and oriented x 3. No acute distress. Well-nourished. - EYES: EOMI. Anicteric. - HENT: Atraumatic, no C-spine tenderness. Moist mucous membranes. No scleral icterus. No cervical lymphadenopathy. - LUNGS: Clear to auscultation bilaterally. No accessory muscle use. Equal lung sounds bilaterally. No respiratory distress. - CARDIOVASCULAR: Regular rate and rhythm. No murmur. No JVD. - ABDOMEN: Soft, non-tender and non-distended. Negative CVA tenderness bilaterally, no rebound or guarding, negative Hunter sign. No palpable masses. - EXTREMITIES: No edema. Non-tender. - SKIN: No rashes or lesions. Warm. - NEUROLOGIC: No meningismus or focal neurological deficits. CN II-XII grossly intact. - PSYCHIATRIC: Cooperative. Appropriate mood and affect. Course Vital Signs: Vital signs: Vital Signs Temperature 97.8 F 08/28/21 15:19 Pulse Rate 84 08/28/21 16:20 Respiratory Rate 18 08/28/21 17:00 Blood Pressure 116/74 08/28/21 16:20 Pulse Oximetry 95 08/28/21 16:20 MDM - Chest Pain Medical Decision Making 51-year-old presents with chest pain. He has a history of CAD. Pain improved with aspirin nitro and morphine. EKG and troponin do not reveal any sign of acute ischemia or acute abnormality. D-dimer is negative. X-ray does not reveal pneumothorax or consolidation. Remainder blood work unremarkable. Remainder of lab work and imaging reviewed. Discussed with hospitalist and they agreed patient would benefit from admission. Patient admitted in stable condition. Further evaluation management per hospitalist team. Lab Data : 08/28/21 16:00 08/28/21 16:00 Radiology Impressions Chest X-Ray 08/28/21 15:36 Impression: Negative chest. Laboratory Results WBC 8.9 10^3/uL (4.0-10.0) 08/28/21 16:00 RBC 5.54 10^6/uL (4.1-5.3) H 08/28/21 16:00 Hgb 16.9 g/dL (11.7-16.6) H 08/28/21 16:00 Hct 49.7 % (42.0-52.0) 08/28/21 16:00 MCV 89.7 fl (80-94) 08/28/21 16:00 MCH 30.5 pg (28.0-34.0) 08/28/21 16:00 MCHC 34.0 g/dL (30.0-36.0) 08/28/21 16:00 RDW 12.1 % (12.1-15.1) 08/28/21 16:00 Plt Count 275 10^3/cmm (130-400) 08/28/21 16:00 MPV 10.0 fL (7.4-10.4) 08/28/21 16:00 Neut % (Auto) 57.3 % 08/28/21 16:00 Lymph % (Auto) 32.5 % 08/28/21 16:00 [place] % (Auto) 8.2 % 08/28/21 16:00 Eos % (Auto) 1.1 % 08/28/21 16:00 Baso % (Auto) 0.6 % 08/28/21 16:00 Neut # (Auto) 5.08 10^3/uL (1.8-7.7) 08/28/21 16:00 Lymph # (Auto) 2.9 10^3/uL (0.8-4.8) 08/28/21 16:00 [place] # (Auto) 0.7 10^3/uL (0.2-0.9) 08/28/21 16:00 Eos # (Auto) 0.1 10^3/uL (0.0-0.8) 08/28/21 16:00 Baso # (Auto) 0.1 10^3/uL (0.0-0.1) 08/28/21 16:00 Nucleated RBC % (auto) 0 % 08/28/21 16:00 Nucleated RBCs # 0.0 /100WBC 08/28/21 16:00 D-Dimer 0.37 ug/mIFEU (0-0.59) 08/28/21 16:00 Sodium 134 mmol/L (136-145) L 08/28/21 16:00 Potassium 4.1 mmol/L (3.5-5.1) 08/28/21 16:00 Chloride 98 mmol/L (98-107) 08/28/21 16:00 Carbon Dioxide 23 mmol/L (22-29) 08/28/21 16:00 Anion Gap 17.1 (5-19) 08/28/21 16:00 BUN 8 mg/dL (6-20) 08/28/21 16:00 Creatinine 0.7 mg/dL (0.7-1.2) 08/28/21 16:00 GFR Calculation 119.4 mL/min (90-130) 08/28/21 16:00 Glucose 323 mg/dL (65-115) H 08/28/21 16:00 Calculated Osmolality 289 mOsm/kg (285-295) 08/28/21 16:00 Calcium 9.1 mg/dL (8.5-10.5) 08/28/21 16:00 Total Bilirubin 0.2 mg/dL (0.15-1.2) 08/28/21 16:00 AST 22 U/L (0-40) 08/28/21 16:00 ALT 46 U/L (0-41) H 08/28/21 16:00 Alkaline Phosphatase 152 IU/L (40-130) H 08/28/21 16:00 Troponin T Baseline 6 ng/L (0-15) 08/28/21 16:00 NT-Pro-B Natriuret Pep 49 pg/mL (0-125) 08/28/21 16:00 Total Protein 7.2 g/dL (6.6-8.7) 08/28/21 16:00 Albumin 4.1 g/dL (3.5-5.2) 08/28/21 16:00 Globulin 3.1 g/dL (1.3-4.6) 08/28/21 16:00 Lipase 82 U/L (13-60) H 08/28/21 16:00 EKG Data EKG 1: Other EKG comments: Sinus rhythm with occasional supraventricular complexes, rate of 95, no sign of acute ischemia or other acute abnormality. Discharge Plan Discharge Condition: Stable Prescriptions: No Action metformin 1,000 mg tablet 1,000 mg PO BID Qty: 180 3RF sertraline 100 mg tablet 100 mg PO BID Qty: 90 3RF metoprolol tartrate 50 mg tablet 50 mg PO BID Qty: 180 3RF zolpidem [Ambien] 10 mg tablet 10 mg PO BEDTIME 0RF Label Comments: Take 1 tab po at bedtime glimepiride 2 mg tablet 2 mg PO DAILY 0RF atorvastatin 80 mg tablet 80 mg PO DAILY 0RF fenofibrate nanocrystallized 145 mg tablet 145 mg PO BEDTIME 0RF Januvia 100 mg tablet 100 mg PO DAILY 0RF hydrocodone-acetaminophen 10-325 mg tablet 0.5 - 1 tab PO .Q4-6H MDD 2 tabs PRN (Reason: Pain) 0RF lisinopril 10 mg tablet 10 mg PO DAILY 0RF ondansetron 4 mg tablet,disintegrating 4 mg PO Q6H PRN (Reason: Nausea And Vomiting) 0RF Brilinta 90 mg Tablet 90 mg PO BID 0RF Aspir-81 81 mg Tablet,Delayed Release (Dr/Ec) 81 mg PO DAILY 0RF Referrals: Abelino Varma, LIVESTOCK PRODUCER [Primary Care Provider] - Coding 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
--- NOTE | 2021-08-28 15:36 | XR_ITS ---
WS: [id number] Portable AP upright chest, 08/28/2021 Clinical Data: cp Comparison: None. Findings: No nodules, masses or effusions are seen. The heart is normal. The pulmonary vascularity is not increased. No pneumonia or pneumothorax is seen. XR/XR chest 1V portable [id number] Impression: Negative chest.
--- NOTE | 2021-08-28 15:36 | ECG_ITS ---
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 Measurements Intervals [place] Rate: 65 P: 66 [place]: 155 QRS: -52 QRSD: 92 T: 73 QT: 388 QTc: 404 Interpretive Statements SINUS RHYTHM PATTERN CONSISTENT WITH PULMONARY DISEASE POSSIBLE RIGHT VENTRICULAR CONDUCTION DELAY [RSR (QR) IN V1/V2] LEFT ANTERIOR FASCICULAR BLOCK [QRS AXIS <= -45, QR IN I, RS IN II] SEPTAL MYOCARDIAL INFARCTION , OF INDETERMINATE AGE [40+ ms Q WAVE IN V1/V2] Compared to ECG 08/28/2021 15:18:23 Left anterior fascicular block now present Myocardial infarct finding now present T-wave abnormality no longer present Electronically Signed On 08-28-2021 19:26:17 CDT by Laron Erazo M.D. [id number]
[2021-08-28] MEDS: nitroglycerin 0.4 mg sublingual Tablet SUBLINGUAL (16:00)
[2021-08-28] MEDS: aspirin 81 mg Chew Tablet 324 MG PO (16:13)
[2021-08-28 16:15] LABS: Basophils # 0.1 10^3/uL (0.0-0.1); Basophils % 0.6 %; Eosinophils # 0.1 10^3/uL (0.0-0.8); Eosinophils % 1.1 %; Hematocrit 49.7 % (42.0-52.0); Hemoglobin 16.9 g/dL (11.7-16.6); Lymphocytes # 2.9 10^3/uL (0.8-4.8); Lymphocytes % 32.5 %; Mean Corpuscular Hemoglobin 30.5 pg (28.0-34.0); Mean Corpuscular Volume 89.7 fl (80-94); Monocytes # 0.7 10^3/uL (0.2-0.9); Monocytes % 8.2 %; Neutrophils # 5.08 10^3/uL (1.8-7.7); Neutrophils % 57.3 %; Nucleated Red Blood Cells % 0 %; Platelet Count 275 10^3/cmm (130-400); Red Blood Count 5.54 10^6/uL (4.1-5.3); Red Cell Distribution Width 12.1 % (12.1-15.1); White Blood Count 8.9 10^3/uL (4.0-10.0)
--- NOTE | 2021-08-28 16:30 | PC.PHAR ---
pt states he takes care of his own medications-pt states since June he has been out of his zoloft 100mg bid-glimepiride 2mg daily-metformin 1000mg bid-januvia 100mg daily-lisinopril 10mg daily-lipitor 80mg daily-metoprolol tartrate 50mg bid-brilinta 90mg bid- pt states he hasnt taken his 81mg aspirin for a few weeks-notes are made in the pharmacy comments-
[2021-08-28 16:36] LABS: D Dimer 0.37 ug/mIFEU (0-0.59)
[2021-08-28 16:44] LABS: Troponin(5th) Baseline 6 ng/L (0-15)
[2021-08-28 16:52] LABS: Alanine Aminotransferase 46 U/L (0-41); Albumin Level 4.1 g/dL (3.5-5.2); Alkaline Phosphatase 152 IU/L (40-130); Anion Gap 17.1 (5-19); Aspartate Amino Transferase 22 U/L (0-40); Blood Urea Nitrogen 8 mg/dL (6-20); Calcium 9.1 mg/dL (8.5-10.5); Carbon Dioxide 23 mmol/L (22-29); Chloride 98 mmol/L (98-107); Globulin 3.1 g/dL (1.3-4.6); Glomerular Filtration Rate 119.4 mL/min (90-130); Glucose 323 mg/dL (65-115); Lipase 82 U/L (13-60); NT Pro B Type Natriuretic Pept 49 pg/mL (0-125); Osmolality Calculated 289 mOsm/kg (285-295); Potassium 4.1 mmol/L (3.5-5.1); Sodium 134 mmol/L (136-145); Total Bilirubin 0.2 mg/dL (0.15-1.2); Total Protein 7.2 g/dL (6.6-8.7)
[2021-08-28] MEDS: morphine 4 mg/mL SDV 1 mL IVP (17:00)
[2021-08-28] MEDS: ondansetron 2 mg/ML SDV 2 mL 4 MG IVP ×2 (17:01→21:10)
--- NOTE | 2021-08-28 17:36 | ECG_ITS ---
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 Measurements Intervals [place] Rate: 95 P: 55 [place]: 153 QRS: -26 QRSD: 86 T: 62 QT: 347 QTc: 438 Interpretive Statements SINUS RHYTHM WITH OCCASIONAL SUPRAVENTRICULAR PREMATURE COMPLEXES POSSIBLE LEFT ATRIAL ENLARGEMENT [-0.1mV P-WAVE IN V1/V2] BORDERLINE LEFT AXIS DEVIATION [QRS AXIS < -20] POSSIBLE RIGHT VENTRICULAR CONDUCTION DELAY [RSR (QR) IN V1/V2] NONSPECIFIC T-WAVE ABNORMALITY Compared to ECG 06/12/2021 07:12:51 T-wave abnormality now present Ventricular premature complex(es) no longer present Incomplete right bundle-branch block no longer present Myocardial infarct finding no longer present Electronically Signed On 08-28-2021 19:27:01 CDT by Laron Erazo M.D. [id number]
--- NOTE | 2021-08-28 17:44 | W.ED.CHESTPA ---
HPI - Chest Pain General: Chief Complaint: Chest Pain Stated Complaint: cp, sob Time Seen by Provider: 08/28/21 15:28 History of Present Illness: 51-year-old with history of CAD presents with chest pain. States pain is nonexertional pleuritic. Does not radiate back. Denies any fevers or chills. Does report nausea but no vomiting PFSH ED PFSH: Medical History Anxiety History of [place] (myocardial infarction) History of polyneuropathy Hx of hyperlipidemia Insomnia disorder Lung nodule Rectal fistula Surgical History H/O total knee replacement History of foot surgery History of rectal surgery History of testicular surgery Hx of appendectomy Hx of shoulder surgery Hx of tonsillectomy Hx of umbilical hernia repair Family History Mother Cancer Diabetes Denies family history of CAD (coronary artery disease) Clotting disorder Dementia Chronic kidney disease (CKD) Suicide Anesthesia complication Bleeding disorder Lung disease Stroke Social History Smoking and tobacco status: current every day smoker cigarettes Packs smoked per day: 1 Alcohol intake: never Course Vital Signs: Vital signs: Vital Signs Temperature 97.8 F 08/28/21 15:19 Pulse Rate 84 08/28/21 16:20 Respiratory Rate 18 08/28/21 17:00 Blood Pressure 116/74 08/28/21 16:20 Pulse Oximetry 95 08/28/21 16:20 MDM - Chest Pain Lab Data : 08/28/21 16:00 08/28/21 16:00 Radiology Impressions Chest X-Ray 08/28/21 15:36 Impression: Negative chest. Laboratory Results WBC 8.9 10^3/uL (4.0-10.0) 08/28/21 16:00 RBC 5.54 10^6/uL (4.1-5.3) H 08/28/21 16:00 Hgb 16.9 g/dL (11.7-16.6) H 08/28/21 16:00 Hct 49.7 % (42.0-52.0) 08/28/21 16:00 MCV 89.7 fl (80-94) 08/28/21 16:00 MCH 30.5 pg (28.0-34.0) 08/28/21 16:00 MCHC 34.0 g/dL (30.0-36.0) 08/28/21 16:00 RDW 12.1 % (12.1-15.1) 08/28/21 16:00 Plt Count 275 10^3/cmm (130-400) 08/28/21 16:00 MPV 10.0 fL (7.4-10.4) 08/28/21 16:00 Neut % (Auto) 57.3 % 08/28/21 16:00 Lymph % (Auto) 32.5 % 08/28/21 16:00 [place] % (Auto) 8.2 % 08/28/21 16:00 Eos % (Auto) 1.1 % 08/28/21 16:00 Baso % (Auto) 0.6 % 08/28/21 16:00 Neut # (Auto) 5.08 10^3/uL (1.8-7.7) 08/28/21 16:00 Lymph # (Auto) 2.9 10^3/uL (0.8-4.8) 08/28/21 16:00 [place] # (Auto) 0.7 10^3/uL (0.2-0.9) 08/28/21 16:00 Eos # (Auto) 0.1 10^3/uL (0.0-0.8) 08/28/21 16:00 Baso # (Auto) 0.1 10^3/uL (0.0-0.1) 08/28/21 16:00 Nucleated RBC % (auto) 0 % 08/28/21 16:00 Nucleated RBCs # 0.0 /100WBC 08/28/21 16:00 D-Dimer 0.37 ug/mIFEU (0-0.59) 08/28/21 16:00 Sodium 134 mmol/L (136-145) L 08/28/21 16:00 Potassium 4.1 mmol/L (3.5-5.1) 08/28/21 16:00 Chloride 98 mmol/L (98-107) 08/28/21 16:00 Carbon Dioxide 23 mmol/L (22-29) 08/28/21 16:00 Anion Gap 17.1 (5-19) 08/28/21 16:00 BUN 8 mg/dL (6-20) 08/28/21 16:00 Creatinine 0.7 mg/dL (0.7-1.2) 08/28/21 16:00 GFR Calculation 119.4 mL/min (90-130) 08/28/21 16:00 Glucose 323 mg/dL (65-115) H 08/28/21 16:00 Calculated Osmolality 289 mOsm/kg (285-295) 08/28/21 16:00 Calcium 9.1 mg/dL (8.5-10.5) 08/28/21 16:00 Total Bilirubin 0.2 mg/dL (0.15-1.2) 08/28/21 16:00 AST 22 U/L (0-40) 08/28/21 16:00 ALT 46 U/L (0-41) H 08/28/21 16:00 Alkaline Phosphatase 152 IU/L (40-130) H 08/28/21 16:00 Troponin T Baseline 6 ng/L (0-15) 08/28/21 16:00 NT-Pro-B Natriuret Pep 49 pg/mL (0-125) 08/28/21 16:00 Total Protein 7.2 g/dL (6.6-8.7) 08/28/21 16:00 Albumin 4.1 g/dL (3.5-5.2) 08/28/21 16:00 Globulin 3.1 g/dL (1.3-4.6) 08/28/21 16:00 Lipase 82 U/L (13-60) H 08/28/21 16:00 Discharge Plan Discharge Condition: Stable Prescriptions: No Action metformin 1,000 mg tablet 1,000 mg PO BID Qty: 180 3RF sertraline 100 mg tablet 100 mg PO BID Qty: 90 3RF metoprolol tartrate 50 mg tablet 50 mg PO BID Qty: 180 3RF zolpidem [Ambien] 10 mg tablet 10 mg PO BEDTIME 0RF Label Comments: Take 1 tab po at bedtime glimepiride 2 mg tablet 2 mg PO DAILY 0RF atorvastatin 80 mg tablet 80 mg PO DAILY 0RF fenofibrate nanocrystallized 145 mg tablet 145 mg PO BEDTIME 0RF Januvia 100 mg tablet 100 mg PO DAILY 0RF hydrocodone-acetaminophen 10-325 mg tablet 0.5 - 1 tab PO .Q4-6H MDD 2 tabs PRN (Reason: Pain) 0RF lisinopril 10 mg tablet 10 mg PO DAILY 0RF ondansetron 4 mg tablet,disintegrating 4 mg PO Q6H PRN (Reason: Nausea And Vomiting) 0RF Brilinta 90 mg Tablet 90 mg PO BID 0RF Aspir-81 81 mg Tablet,Delayed Release (Dr/Ec) 81 mg PO DAILY 0RF Referrals: Abelino Varma [employer]SP[employer] PROVIDER [Primary Care Provider] - Coding Level of Care Code ED Language Interpreter for Criselda Us
--- NOTE | 2021-08-28 17:56 | P.HP_ITS ---
Providers/Chief Complaint Primary Care Provider: HELEN Ji Chief Complaint: cp, sob History of Present Illness Nicola Coyle is a 51 year old male with a past medical history of CAD, CVA, history of stenting, hypertension, hyperlipidemia, diabetes mellitus who presents to [facility] for chest pain. He tells me for the last 4 days he has had mid substernal chest pain, lasting a few seconds, nothing out of the ordinary he tells me. However today he woke up he was not feeling well, he thought it was a heat, and he went to lunch with his sister when he started to develop severe substernal chest pain, pressure-like pain, nonradiating, no nausea, no vomiting, no diaphoresis, no shortness of breath, no orthopnea, no paroxysmal nocturnal dyspnea. Review of Systems Const: Denies: fever(s) Resp: Denies: dyspnea, productive cough, non-productive cough or wheezing Musc: Denies: back pain Endo: Denies: polyuria or polydipsia Medications/Allergies Home Medications Medication Instructions Recorded Confirmed Last Taken Type metformin 1,000 mg tablet 1,000 mg PO BID #180 tab 11/07/19 08/28/21 2 Months Ago Rx ~06/28/21 sertraline 100 mg tablet 100 mg PO BID #90 tab 11/07/19 08/28/21 2 Months Ago Rx ~06/28/21 metoprolol tartrate 50 mg tablet 50 mg PO BID #180 tab 01/23/21 08/28/21 2 Months Ago Rx ~06/28/21 zolpidem 10 mg tablet (Ambien) 10 mg PO BEDTIME tab 05/05/21 08/28/21 08/27/21 History atorvastatin 80 mg tablet 80 mg PO DAILY 05/15/21 08/28/21 2 Months Ago History ~06/28/21 fenofibrate nanocrystallized 145 145 mg PO BEDTIME 05/15/21 08/28/21 08/27/21 History mg tablet glimepiride 2 mg tablet 2 mg PO DAILY 05/15/21 08/28/21 2 Months Ago History ~06/28/21 sitagliptin 100 mg tablet (Januvia) 100 mg PO DAILY 05/15/21 08/28/21 2 Months Ago History ~06/28/21 aspirin 81 mg tablet,delayed 81 mg PO DAILY 08/28/21 08/28/21 2 Weeks Ago History release ~08/14/21 hydrocodone 10 mg-acetaminophen 0.5 - 1 tab PO .Q4-6H PRN MDD 2 08/28/21 08/28/21 Unknown History 325 mg tablet tabs lisinopril 10 mg tablet 10 mg PO DAILY 08/28/21 08/28/21 2 Months Ago History ~06/28/21 ondansetron 4 mg disintegrating 4 mg PO Q6H PRN 08/28/21 08/28/21 Unknown History tablet ticagrelor 90 mg tablet (Brilinta) 90 mg PO BID 08/28/21 08/28/21 2 Months Ago History ~06/28/21 Allergies Allergy/AdvReac Type Severity Reaction Status Date / Time Iodinated Contrast Media Allergy Severe ALGY-Anaphy Verified 08/28/21 16:16 laxis penicillamine Allergy Severe ALGY-Anaphy Verified 08/28/21 16:16 laxis Penicillins Allergy ALGY-Anaphy Verified 08/28/21 16:16 laxis quetiapine [From Seroquel] Allergy Unknown Verified 08/28/21 16:16 calcium [From DHEA] AdvReac Intermediate tachycardia Verified 08/28/21 16:16 calcium carbonate [From DHEA] AdvReac Intermediate tachycardia Verified 08/28/21 16:16 chlorpromazine AdvReac Intermediate tachycardia Verified 08/28/21 16:16 [From Thorazine] ketorolac [From Toradol] AdvReac Intermediate High HR Verified 08/28/21 16:16 prasterone (DHEA) [From DHEA] AdvReac Intermediate tachycardia Verified 08/28/21 16:16 simvastatin [From Zocor] AdvReac Intermediate elevated Verified 08/28/21 16:16 lft Sulfa (Sulfonamide AdvReac Intermediate Nausea Verified 08/28/21 16:16 Antibiotics) diarrhea PFSH Acute PFSH: Medical History Anxiety History of [place] (myocardial infarction) History of polyneuropathy Hx of hyperlipidemia Insomnia disorder Lung nodule Rectal fistula Surgical History H/O total knee replacement History of foot surgery History of rectal surgery History of testicular surgery Hx of appendectomy Hx of shoulder surgery Hx of tonsillectomy Hx of umbilical hernia repair Family History Mother Cancer Diabetes Denies family history of CAD (coronary artery disease) Clotting disorder Dementia Chronic kidney disease (CKD) Suicide Anesthesia complication Bleeding disorder Lung disease Stroke Social History Smoking and tobacco status: current every day smoker cigarettes Packs smoked per day: 1 Alcohol intake: never Vitals/I&O/Wt Last Vital Signs Temp 97.8 F 08/28/21 15:19 Pulse 84 08/28/21 16:20 Resp 18 08/28/21 17:00 BP 116/74 08/28/21 16:20 Pulse Ox 95 08/28/21 16:20 Weight last 48 hrs Weight 86.183 kg Physical Exam Const: COMMON NORMALS: no acute distress and patient oriented x3 HENMT: COMMON NORMALS: normocephalic HEAD & SCALP: normocephalic Neck/C-Spine: COMMON NORMALS: no JVD Resp: COMMON NORMALS: normal respiratory effort, No retractions, No use of accessory muscles and clear to auscultation bilaterally AUSCULTATION: clear t o auscultation bilaterally Cardio: COMMON NORMALS: no JVD, regular rate, regular rhythm, S1 normal heart sound present and S2 normal heart sound present RATE: regular rate RHYTHM: regular rhythm HEART SOUNDS: S1 normal heart sound present and S2 normal heart sound present GI: COMMON NORMALS: Normal to inspection, nondistended, normoactive bowel sounds present, Soft to palpation, non-tender, No hepatosplenomegaly present, no masses and no bruits PALPATION: Yes Soft to palpation and Yes No hepatosplenomegaly present Extremity: COMMON NORMALS: capillary refill normal, no clubbing, cyanosis or edema, no calf tenderness and no pedal edema Neuro: COMMON NORMALS: patient oriented x3 Psych: COMMON NORMALS: mental status grossly normal Data : 08/28/21 16:00 08/28/21 16:00 A&P Assessment and plan (1) Chest pain: Status: Acute Plan Chest pain -Serial EKGs, serial troponins, telemetry monitoring -Aspirin, statin, beta-artur -Cardiac echo -N.p.o. midnight, cardiac stress test tomorrow morning -Nitro as needed for chest pain -Morphine as needed for chest pain -Full code -Lovenox for DVT prophylaxis Elevated alk phos, LFTs, right upper quadrant ultrasound Attestations Medical Necessity Statement*: Patient requires hospitalization, outpatient with observation, for chest pain Coding Level of Care Code Acute Quality Assurance Monitor Chassis for Criselda Us Diagnoses Chest pain R07.9
[2021-08-28 18:20] LABS: Troponin 5 2HR Delta 0 ABS# (0-10)
--- NOTE | 2021-08-28 20:09 | USCV_ITS ---
Nicola Coyle Age: 51 Gender: M : 1970 Exam Date: 08/28/2021 21:03 Ordering Phys: Justin Acharya MD Technologist: RICARDO [place] [facility] [place] chest pain tonight. History of cardiac stenting; last stent 2018 BP: 132 / 73 HR: 76 Rhythm: Sinus Technical Quality: Adequate MEASUREMENTS (Male / Female) Normal Values 2D ECHO LV Diastolic Diameter PLAX 4.8 cm 4.2 - 5.9 / 3.9 - 5.3 cm LV Systolic Diameter PLAX 3.2 cm IVS Diastolic Thickness 1.3 cm 0.6 - 1.0 / 0.6 - 0.9 cm IVS Systolic Thickness 1.8 cm LVPW Diastolic Thickness 1.5 cm 0.6 - 1.0 / 0.6 - 0.9 cm LVPW Systolic Thickness 2.0 cm LVOT Diameter 2.4 cm LV Ejection Fraction 2D Teich 62.4 % LV Ejection Fraction MOD 2C 57.8 % LV Ejection Fraction 2C AL 57.9 % LA Diameter 3.8 cm LA Width 4.3 cm LA Height 5.1 cm RA Width 4.2 cm RA Height 4.2 cm Aorta at Sinotubular Diameter 3.1 cm IVC Diameter 1.3 cm M-MODE Aortic Annulus Diameter 3.5 cm LA Ao Ratio MM 1.0 MV E Point Septal Separation 0.5 cm DOPPLER AV Peak Velocity 124.0 cm/s LVOT Peak Velocity 81.0 cm/s AV Area Cont Eq vti 2.6 cm squared AV Area Cont Eq pk 2.8 cm squared MV Peak Velocity 97.0 cm/s MV Area PHT 3.9 cm squared Mitral E to A Ratio 1.2 MV E' Velocity 39.5 cm/s Mitral E to MV E' Ratio 8.9 Mitral E to LV E' Lateral Ratio 9.2 Mitral E to LV E' Septal Ratio 8.7 TR Peak Velocity 223.0 cm/s TR Peak Gradient 19.9 mmHg TV Peak E Velocity 60.0 cm/s Right Atrial Pressure 5.0 mmHg Pulmonary Artery Systolic Pressu 24.9 mmHg PV Peak Velocity 69.0 cm/s RV Acceleration Time 0.1 s RV Ejection Time 0.4 s RV AcT/ET 0.3 FINDINGS Left Ventricle Normal left ventricular size. LV systolic function is borderline low with EF of 45-50%. Mild global hypokinesis is seen Right Ventricle The right ventricle is normal in size and function. Right Atrium The right atrium is normal in size. Left Atrium The left atrium is normal in size. Mitral Valve Structurally normal mitral valve without significant stenosis or prolapse. There is no mitral regurgitation. Aortic Valve Structurally normal aortic valve without significant sclerosis or stenosis. There is mild aortic regurgitation. Tricuspid Valve Structurally normal tricuspid valve without significant stenosis. Trace tricuspid regurgitation. Insufficient TR jet to calculate RVSP Pulmonic Valve Not well-visualized Pericardium Normal pericardium without effusion. Aorta Normal ascending aorta dimension. IVC CONCLUSIONS LV systolic function is borderline low with EF of 45-50%. Mild aortic regurgitation Trace tricuspid regurgitation Compared to prior echocardiogram from 04/19/2020, no significant changes are seen Caden Ochoa MD (Electronically Signed) Final Date: 29 August 2021 16:43 S
--- NOTE | 2021-08-28 20:09 | US_ITS ---
WS: [id number] RIGHT UPPER QUADRANT ULTRASOUND HISTORY: Chest pain and RIGHT upper quadrant pain. COMPARISON: None available. Liver: 16.6 cm in length. Normal size liver. No bile duct dilatation or mass. Portal Vein: Normal hepatopetal flow with monophasic waveform. Gallbladder: Normally distended gallbladder with no stones or wall thickening. CBD: 0.5 cm Pancreas: Normal size and echogenicity. Right kidney: 12.5 cm in length. Normal size and echogenicity. No hydronephrosis or mass. Aorta and IVC: Unremarkable abdominal aorta and IVC. No ascites. US/US abdomen limited [id number] IMPRESSION: Normal RIGHT upper quadrant ultrasound.
[2021-08-28 20:55] LABS: Glucose Point of Care 179 mg/dL (70-110)
[2021-08-28] MEDS: morphine 4 mg/mL SDV 1 mL 1 MG IVP (21:10)
[2021-08-28] MEDS: enoxaparin 40 mg/0.4 mL Syringe SUBCUT (21:35)
[2021-08-28] MEDS: insulin lispro 100 unit/1 mL SUBCUT (21:35)
[2021-08-28] MEDS: ticagrelor 90 mg Tablet PO (21:36)
[2021-08-28] MEDS: sertraline 100 mg Tablet PO (21:36)
[2021-08-28] MEDS: fenofibrate 145 mg Tablet PO (21:36)
[2021-08-28] MEDS: metoprolol tartrate 50 mg Tablet PO (21:36)
--- NOTE | 2021-08-28 21:36 | ECG_ITS ---
[facility] Test Date: 2021-08-29 Pat Name: Nicola Coyle Department: Room: 276 Gender: Male [place]ade Sewer: : 1970 Requested By: Nilo Vicente Order Number: [id number] Dom MD: Caden Ochoa M.D. Measurements Intervals [place] Rate: 56 P: 53 NC: 163 QRS: -34 QRSD: 102 T: 1 QT: 419 QTc: 406 Interpretive Statements SINUS BRADYCARDIA LEFT AXIS DEVIATION [QRS AXIS < -30] LOW QRS VOLTAGE IN PRECORDIAL LEADS [QRS DEFLECTION < 1.0 mV IN CHEST LEADS] INCOMPLETE RIGHT BUNDLE BRANCH BLOCK [90+ ms QRS DURATION, TERMINAL R IN V1/V2, 40+ ms S IN I/aVL/V4/V5/V6] POSSIBLE ANTERIOR MYOCARDIAL INFARCTION , OF INDETERMINATE AGE [30 ms Q WAVE IN V3/V4, OR R < 0.2 mV IN V4] Incomplete right bundle-branch block now present Myocardial infarct finding still present Compared to ECG 08/28/2021 17:56:01 Incomplete right bundle-branch block now present Myocardial infarct finding still present Electronically Signed On 08-29-2021 18:23:04 CDT by Caden Ochoa M.D. [id number]
[2021-08-28] MEDS: zolpidem 5 mg Tablet 10 MG PO (21:37)
[2021-08-28 22:26] LABS: Estmated Average Glucose 249; Hemoglobin A1C 10.3 % (4.0-6.0)
--- NOTE | 2021-08-28 22:36 | PC.NURSE ---
Patient refusing nitroglycerin drip stating it does not help with chest pain and only gives me a raging headache. Dr Solis was informed.
[2021-08-28 23:16] LABS: Troponin 5 6HR 7.09 ng/L (0-15)
[2021-08-28 23:51] LABS: Troponin 5 6HR Delta 1.09 ng/L (0-12)
[2021-08-29] VITALS (16 sets, daily range): BP systolic 101–169; BP diastolic 54–96; PULSE 56–79; RESP 13–22; TEMP 36.2–36.7; O2SAT 94–99
[2021-08-29] MEDS: morphine 4 mg/mL SDV 1 mL 1 MG IVP ×2 (02:04→09:27)
[2021-08-29] MEDS: ALPRAZolam 0.5 mg Tablet PO (03:42)
[2021-08-29 04:22] LABS: Basophils # 0.1 10^3/uL (0.0-0.1); Basophils % 0.5 %; Eosinophils # 0.2 10^3/uL (0.0-0.8); Eosinophils % 1.3 %; Hematocrit 49.9 % (42.0-52.0); Hemoglobin 16.7 g/dL (11.7-16.6); Lymphocytes # 5.3 10^3/uL (0.8-4.8); Mean Corpuscular HGB Conc 33.5 g/dL (30.0-36.0); Mean Corpuscular Hemoglobin 30.8 pg (28.0-34.0); Mean Corpuscular Volume 91.9 fl (80-94); Monocytes % 7.9 %; Neutrophils # 6.31 10^3/uL (1.8-7.7); Neutrophils % 49.1 %; Nucleated Red Blood Cells % 0 %; Platelet Count 295 10^3/cmm (130-400); Red Blood Count 5.43 10^6/uL (4.1-5.3); Red Cell Distribution Width 12.5 % (12.1-15.1); White Blood Count 12.9 10^3/uL (4.0-10.0)
[2021-08-29 04:56] LABS: Alanine Aminotransferase 43 U/L (0-41); Albumin Level 4.1 g/dL (3.5-5.2); Alkaline Phosphatase 124 IU/L (40-130); Aspartate Amino Transferase 24 U/L (0-40); Blood Urea Nitrogen 9 mg/dL (6-20); Calcium 9.3 mg/dL (8.5-10.5); Carbon Dioxide 23 mmol/L (22-29); Chloride 101 mmol/L (98-107); Globulin 2.8 g/dL (1.3-4.6); Glucose 195 mg/dL (65-115); NT Pro B Type Natriuretic Pept 35 pg/mL (0-125); Osmolality Calculated 286 mOsm/kg (285-295); Phosphorus 3.9 mg/dL (2.5-4.5); Sodium 136 mmol/L (136-145); Thyroid Stimulating Hormone 2.79 uIU/mL (0.27-4.20); Total Bilirubin 0.2 mg/dL (0.15-1.2); Total Protein 6.9 g/dL (6.6-8.7)
[2021-08-29 04:57] LABS: Anion Gap 15.9 (5-19); Potassium 3.9 mmol/L (3.5-5.1)
[2021-08-29 06:39] LABS: Glucose Point of Care 225 mg/dL (70-110)
[2021-08-29 06:39] LABS: Glucose Point of Care 170 mg/dL (70-110)
--- NOTE | 2021-08-29 07:02 | ECG_ITS ---
[facility] Test Date: 2021-08-29 Pat Name: Nicola Coyle Department: Room: 276 Gender: Male Public Relations Analyst: Ofelia Christiansonn : 1970 Requested By: Justin Acharya Order Number: [id number] Dom MD: Caden Ochoa M.D. Interpretive Statements NAME OF STUDY: LEXISCAN SESTAMIBI STRESS TEST INDICATION: [Chest Pain, ] Procedure: At the baseline, the blood pressure was 157/87 mmHg with a heart rate of 66 bpm. The electrocardiogram showed normal sinus rhythm, left axis deviation, no significant ST-T wave changes. The Lexiscan was infused over a period of 20 seconds. A total of 0.4 mg of Lexiscan was infused. The stress phase was continued for a total of 5 minutes. Heart rate was at the end of stress phase was 76 bpm and a blood pressure of 123/77 mmHg. The EKG at the peak infusion revealed since normal sinus rhythm with no significant ST-T wave changes. Sestamibi was injected 20 seconds after the Lexiscan infusion. Blood pressure at the end of recovery phase was 118/72 mmHg with a heart rate of 79 bpm. Conclusion: 1. Normal EKG response to Lexiscan infusion 2. No Lexiscan induced chest pain or cardiac arrhythmia. 3. Normal blood pressure and heart rate response. 4. Sestamibi/sestamibi perfusion scan pending; see separate report. Electronically Signed On 09-13-2021 12:14:56 CDT by Caden Ochoa M.D. [id number]
--- NOTE | 2021-08-29 07:24 | PC.NURSE ---
off unit at [facility] dept for a cardiac stress test.
[2021-08-29] MEDS: regadenoson 0.4 Mg/5 ml Syringe IVP (07:48)
[2021-08-29] MEDS: insulin lispro 100 unit/1 mL SUBCUT ×3 (09:24→18:21)
[2021-08-29] MEDS: aspirin 81 mg EC Tablet PO (09:28)
[2021-08-29] MEDS: sertraline 100 mg Tablet PO ×2 (09:28→18:20)
[2021-08-29] MEDS: lisinopril 10 mg Tablet PO (09:28)
[2021-08-29] MEDS: ticagrelor 90 mg Tablet PO ×2 (09:28→18:20)
[2021-08-29] MEDS: atorvastatin 40 mg Tablet 80 MG PO (09:28)
[2021-08-29] MEDS: metoprolol tartrate 50 mg Tablet PO ×2 (09:29→18:20)
[2021-08-29] MEDS: pantoprazole DR 40 mg Tablet PO (09:29)
--- NOTE | 2021-08-29 09:47 | PM.PN ---
Subjective Subjective: Patient was seen this morning, he tells me that he had episodes of anxiety overnight, which improved with Xanax, he did not really have chest pain, although a nitro drip drip was ordered it has been stopped Vitals/I&O/Wt Last Vital Signs Temp 97.8 F 08/29/21 04:00 Pulse 79 08/29/21 07:48 Resp 22 H 08/29/21 09:27 BP 118/72 08/29/21 07:48 Pulse Ox 99 08/29/21 09:27 08/28/21 08/29/21 08/29/21 22:59 06:59 14:59 Intake Total 120 / 120 480 / 600 Balance 120 / 120 480 / 600 Weight last 48 hrs Weight 90.9 kg Weight 86.183 kg Physical Exam Const: COMMON NORMALS: no acute distress and patient oriented x3 HENMT: COMMON NORMALS: normocephalic HEAD & SCALP: normocephalic Neck/C-Spine: COMMON NORMALS: no JVD Resp: COMMON NORMALS: normal respiratory effort, No retractions, No use of accessory muscles and clear to auscultation bilaterally AUSCULTATION: clear to auscultation bilaterally Cardio: COMMON NORMALS: no JVD, regular rate, regular rhythm, S1 normal heart sound present and S2 normal heart sound present RATE: regular rate RHYTHM: regular rhythm HEART SOUNDS: S1 normal heart sound present and S2 normal heart sound present GI: COMMON NORMALS: Normal to inspection, nondistended, normoactive bowel sounds present, Soft to palpation, non-tender and No hepatosplenomegaly present PALPATION: Yes Soft to palpation and Yes No hepatosplenomegaly present Extremity: COMMON NORMALS: no pedal edema Neuro: COMMON NORMALS: patient oriented x3 Psych: COMMON NORMALS: mental status grossly normal Data : 08/29/21 03:52 08/29/21 03:52 A&P Assessment and plan (1) Chest pain: Status: Acute Plan Chest pain -Serial EKGs, serial troponins, telemetry monitoring -Aspirin, statin, beta-artur -Cardiac echo Stress test today -Nitro as needed for chest pain -Morphine as needed for chest pain -Full code -Lovenox for DVT prophylaxis Elevated alk phos, LFTs, right upper quadrant ultrasound Attestations Medical Necessity Statement*: Patient requires hospitalization for chest pain Coding Level of Care Code Acute Canvas Baster Jumpbasting for Chg Fwd Diagnoses Chest pain R07.9
[2021-08-29 11:33] LABS: Glucose Point of Care 266 mg/dL (70-110)
--- NOTE | 2021-08-29 13:10 | PC.NURSE ---
Pt refused Nitro Drip He stated it gave him a bad headache and made him sick. pt stated, if they will start it, i will yanked it out from my arm. Dr notified and aware of the pt's statement and refusal.
[2021-08-29] MEDS: morphine 4 mg/mL SDV 1 mL 2 MG IVP ×3 (14:14→22:38)
--- NOTE | 2021-08-29 16:30 | PM.CONSULT ---
Providers/Reason For Consult Consulting Physician/Specialty*: Caden Ochoa MD/Cardiology Reason for Consult*: Worsening angina/abnormal stress test Attending Physician: Justin Acharya MD Primary Care Provider: HELEN Ji History of Present Illness History of Present Illness Nicola Coyle is a 51 year old male with past medical history of CAD prior PCI, who presented to the hospital with 4 days of and off chest discomfort. However he gets these symptoms before as well. He came to the hospital as he woke up not feeling well and then started having severe chest pain. It was nonradiating and felt like pressure. No dyspnea on exertion. He underwent a large sized prior infarct in multivessel distribution with moderate sized jose alfredo-infarct ischemia seen in the LAD territory. Echocardiogram shows mildly reduced LV systolic function with EF of 45 to 50%. Review of Systems Narrative: CONSTITUTIONAL: No fever chills weight loss or gain or night sweats. [] HEENT: Normocephalic, atraumatic.[] RESPIRATORY: No cough, sputum, hemoptysis or wheezing.[] CARDIOVASCULAR: Has chest pain, no shortness of breath GI: no nausea vomiting diarrhea. [] MANAGER RAIL: No numbness, tingling, weakness or loss of function in any part of the body. [] MUSCULOSKELETAL: No knee or joint pain or rashes. [] Medications/Allergies Home Medications Medication Instructions Recorded Confirmed Last Taken Type metformin 1,000 mg tablet 1,000 mg PO BID #180 tab 11/07/19 08/28/21 2 Months Ago Rx ~06/28/21 sertraline 100 mg tablet 100 mg PO BID #90 tab 11/07/19 08/28/21 2 Months Ago Rx ~06/28/21 metoprolol tartrate 50 mg tablet 50 mg PO BID #180 tab 01/23/21 08/28/21 2 Months Ago Rx ~06/28/21 zolpidem 10 mg tablet (Ambien) 10 mg PO BEDTIME tab 05/05/21 08/28/21 08/27/21 History atorvastatin 80 mg tablet 80 mg PO DAILY 05/15/21 08/28/21 2 Months Ago History ~06/28/21 fenofibrate nanocrystallized 145 145 mg PO BEDTIME 05/15/21 08/28/21 08/27/21 History mg tablet glimepiride 2 mg tablet 2 mg PO DAILY 05/15/21 08/28/21 2 Months Ago History ~06/28/21 sitagliptin 100 mg tablet (Januvia) 100 mg PO DAILY 05/15/21 08/28/21 2 Months Ago History ~06/28/21 aspirin 81 mg tablet,delayed 81 mg PO DAILY 08/28/21 08/28/21 2 Weeks Ago History release ~08/14/21 hydrocodone 10 mg-acetaminophen 0.5 - 1 tab PO .Q4-6H PRN MDD 2 08/28/21 08/28/21 Unknown History 325 mg tablet tabs lisinopril 10 mg tablet 10 mg PO DAILY 08/28/21 08/28/21 2 Months Ago History ~06/28/21 ondansetron 4 mg disintegrating 4 mg PO Q6H PRN 08/28/21 08/28/21 Unknown History tablet ticagrelor 90 mg tablet (Brilinta) 90 mg PO BID 08/28/21 08/28/21 2 Months Ago History ~06/28/21 Allergies Allergy/AdvReac Type Severity Reaction Status Date / Time Iodinated Contrast Media Allergy Severe ALGY-Anaphy Verified 08/28/21 16:16 laxis penicillamine Allergy Severe ALGY-Anaphy Verified 08/28/21 16:16 laxis Penicillins Allergy ALGY-Anaphy Verified 08/28/21 16:16 laxis quetiapine [From Seroquel] Allergy Unknown Verified 08/28/21 16:16 calcium [From DHEA] AdvReac Intermediate tachycardia Verified 08/28/21 16:16 calcium carbonate [From DHEA] AdvReac Intermediate tachycardia Verified 08/28/21 16:16 chlorpromazine AdvReac Intermediate tachycardia Verified 08/28/21 16:16 [From Thorazine] ketorolac [From Toradol] AdvReac Intermediate High HR Verified 08/28/21 16:16 prasterone (DHEA) [From DHEA] AdvReac Intermediate tachycardia Verified 08/28/21 16:16 simvastatin [From Zocor] AdvReac Intermediate elevated Verified 08/28/21 16:16 lft Sulfa (Sulfonamide AdvReac Intermediate Nausea Verified 08/28/21 16:16 Antibiotics) diarrhea Current Medications Generic Name Dose Route Start Last Admin Trade Name Freq PRN Reason Stop Dose Admin Aspirin 81 mg 08/29/21 09:00 08/29/21 09:28 Aspirin 81 Mg Ec Tablet PO 81 mg DAILY TIA Administration Atorvastatin Calcium 80 mg 08/29/21 09:00 08/29/21 09:28 Atorvastatin 40 Mg Tablet PO 80 mg DAILY TIA Administration Enoxaparin Sodium 40 mg 08/28/21 20:09 08/28/21 21:35 Enoxaparin 40 Mg/0.4 Ml Syringe SUBCUT 40 mg Q24H TIA Administration Fenofibrate 145 mg 08/28/21 21:00 08/28/21 21:36 Fenofibrate 145 Mg Tablet PO 145 mg BEDTIME TIA Administration Insulin Human Lispro 0 unit 08/28/21 20:09 08/29/21 12:59 Insulin Lispro 100 Unit/1 Ml SUBCUT 8 unit TIDWM TIA Administration Protocol Lisinopril 10 mg 08/29/21 09:00 08/29/21 09:28 Lisinopril 10 Mg Tablet PO 10 mg DAILY TIA Administration Metoprolol Tartrate 50 mg 08/28/21 20:09 08/29/21 09:29 Metoprolol Tartrate 50 Mg Tablet PO 50 mg BID TIA Administration Morphine Sulfate 2 mg 08/29/21 13:11 08/29/21 14:14 Morphine 4 Mg/Ml Sdv 1 Ml IVP 2 mg Q4H PRN Administration SEVERE PAIN Ondansetron HCl 4 mg 08/28/21 20:09 08/28/21 21:10 Ondansetron 2 Mg/Ml Sdv 2 Ml IVP 4 mg Q8H PRN Administration vomiting, or N/V if npo Pantoprazole Sodium 40 mg 08/29/21 09:00 08/29/21 09:[address] 40 Mg Tablet PO 40 mg DAILY TIA Administration Sertraline HCl 100 mg 08/28/21 20:09 08/29/21 09:28 Sertraline 100 Mg Tablet PO 100 mg BID TIA Administration Ticagrelor 90 mg 08/28/21 20:09 08/29/21 09:28 Ticagrelor 90 Mg Tablet PO 90 mg BID TIA Administration Zolpidem Tartrate 10 mg 08/28/21 21:00 08/28/21 21:37 Zolpidem 5 Mg Tablet PO 10 mg BEDTIME TIA Administration PFSH Acute PFSH: Medical History Anxiety History of IL (myocardial infarction) History of polyneuropathy Hx of hyperlipidemia Insomnia disorder Lung nodule Rectal fistula Surgical History H/O total knee replacement History of foot surgery History of rectal surgery History of testicular surgery Hx of appendectomy Hx of shoulder surgery Hx of tonsillectomy Hx of umbilical hernia repair Family History Mother Cancer Diabetes Denies family history of CAD (coronary artery disease) Clotting disorder Dementia Chronic kidney disease (CKD) Suicide Anesthesia complication Bleeding disorder Lung disease Stroke Social History Smoking and tobacco status: current every day smoker cigarettes Packs smoked per day: 1 Alcohol intake: never Vitals/I&O/Wt Last Vital Signs Temp 97.9 F 08/29/21 15:33 Pulse 56 L 08/29/21 15:33 Resp 17 08/29/21 15:33 BP 106/61 08/29/21 15:33 Pulse Ox 98 08/29/21 15:33 08/29/21 08/29/21 08/29/21 06:59 14:59 22:59 Intake Total 480 / 600 720 / 720 Balance 480 / 600 720 / 720 Weight last 48 hrs Weight 200 lb 6.4 oz Weight 190 lb Physical Exam Narrative: GENERAL: Patient is alert, awake and oriented x3. [] NECK: No jugular vein distension. [] HEENT: No cyanosis. No icterus. No pallor. [] HEART: Regular S1 and S2. No murmur, rub or gallop. [] LUNGS: Clear to auscultate bilaterally. [] ABDOMEN: Soft, nontender and nondistended. Positive bowel sounds. No guarding, rebound or tenderness. [] CENTRAL NERVOUS SYSTEM: Grossly nonfocal. [] EXTREMITIES: Lower extremities with 1+ edema bilaterally. Pulses palpable in the lower extremities, both dorsalis pedis and posterior tibial. [] Data : 08/30/21 03:31 08/30/21 03:31 A&P Assessment and plan (1) Chest pain: Status: Acute (2) Ischemic cardiomyopathy: Status: Acute (3) Dyslipidemia (high LDL; low HDL): Status: Acute (4) Essential hypertension: Status: Acute (5) Type 2 diabetes mellitus: Status: Acute Qualifiers: Diabetes mellitus long chain quiller tender insulin use: without long chain quiller tender use Diabetes mellitus complication status: with hyperglycemia Qualified Code(s): E11.65 - Type 2 diabetes mellitus with hyperglycemia (6) Abnormal stress test: Status: Acute Plan Patient has presented with chest pain. Given worsening chest pain symptoms, we will proceed with coronary angiogram with possible percutaneous coronary intervention. He has contrast allergy and will be pretreated for contrast allergy. Risks and benefits of the procedure have been discussed with the patient who understands the risks and benefits and wants to proceed with the procedure. Continue aspirin and Brilinta. High intensity statin therapy N.p.o. past midnight. Thank you for involving us with care of this patient. We will continue to follow. Please call with questions. Consult Attestations Medical Necessity Statement: Care expected to cross 2 midnights. Coding Level of Care Code Acute Comparative Sociology Professor for Criselda Us Diagnoses Chest pain R07.9 Ischemic cardiomyopathy I25.5 Dyslipidemia (high LDL; low HDL) E78.5 Essential hypertension I10 Type 2 diabetes mellitus E11.65 Diabetes mellitus jail insulin use: without long chain quiller tender use Diabetes mellitus complication status: with hyperglycemia Abnormal stress test R94.39
[2021-08-29 17:27] LABS: Glucose Point of Care 175 mg/dL (70-110)
[2021-08-29 18:15] LABS: Troponin(5th) Baseline 8 ng/L (0-15)
[2021-08-29] MEDS: predniSONE 20 mg Tablet 40 MG PO ×2 (18:21→22:37)
[2021-08-29 20:09] LABS: Troponin 5 2HR 6.88 ng/L (0-15)
--- NOTE | 2021-08-29 20:09 | NMCV_ITS ---
NM julia perf SPECT r/s* [id number] Nicola Coyle Age: 51 Gender: M : 1970 Exam Date: 08/29/2021 07:05 Ordering Phys: Justin Acharya MD Technologist: SINGH Bojorquez Exam Location: [facility] Indications: CHEST PAIN STRESS TEST [facility] IMAGE PROTOCOL Rest/Stress 1 Lexiscan Day Radiopharmaceutical Dose (mCi) Administration Site Administered by Rest: Tc-99m 10.9 IV SINGH Wilson Sestamibi Stress:Tc-99m 32.4 IV SINGH Wilson Sestamibi Rest: 29-Aug-2021 60 Discovery 630 Stress: 29-Aug-2021 30 Discovery 630 0.4mg Lexiscan. Images obtained in supine and prone position. SPECT RESULTS Technical Quality: Excellent Raw Data Analysis: Normal Image Corrections: No attenuation or motion correction applied Summed Stress Score: 28 Summed Rest Score: 23 Summed Difference Score: 5 PERFUSION FINDINGS There is large in size fixed perfusion defect seen in apical, anterior, inferior and inferolateral bernal. This is consistent with large sized prior infarct in LAD, left circumflex and RCA territory. There is moderate sized area of reversible perfusion defect in anterior wall. This is consistent with moderate sized area of jose alfredo-infarct ischemia in LAD territory. FUNCTIONAL RESULTS (calculated via Gated SPECT) Stress Image LV EF (%): 40 Stress EDV (mL):205 TID: 1.15 Stress ESV (mL):123 FUNCTIONAL FINDINGS: LV systolic function is moderately reduced with EF of 40%. Moderate global hypokinesis is seen IMPRESSIONS 1. Abnormal myocardial perfusion imaging with large sized infarct seen in LAD, left circumflex and RCA territories with significant moderate sized area of jose alfredo-infarct ischemia in LAD territory. 2. LV systolic function is moderately reduced with EF of 40%. Caden Ochoa MD (Electronically Signed) Final Date: 29 August 2021 09:42 S
[2021-08-29 20:10] LABS: Troponin 5 2HR Delta 0.88 ABS# (0-10)
[2021-08-29 20:37] LABS: Glucose Point of Care 257 mg/dL (70-110)
[2021-08-29] MEDS: fenofibrate 145 mg Tablet PO (22:37)
[2021-08-29] MEDS: zolpidem 5 mg Tablet 10 MG PO (22:37)
[2021-08-29] MEDS: enoxaparin 40 mg/0.4 mL Syringe SUBCUT (22:39)
[2021-08-29 23:16] LABS: Troponin 5 6HR 6.83 ng/L (0-15)
[2021-08-29 23:20] LABS: Troponin 5 6HR Delta -1.17 ng/L (0-12)
[2021-08-30] VITALS (21 sets, daily range): BP systolic 93–125; BP diastolic 51–70; PULSE 56–96; RESP 7–22; TEMP 36.5–36.9; O2SAT 92–98
[2021-08-30] MEDS: morphine 4 mg/mL SDV 1 mL 2 MG IVP ×2 (02:24→06:09)
[2021-08-30] MEDS: ALPRAZolam 0.5 mg Tablet PO (02:24)
[2021-08-30 03:40] LABS: Basophils % 0.1 %; Hematocrit 51.2 % (42.0-52.0); Hemoglobin 17.2 g/dL (11.7-16.6); Lymphocytes # 1.3 10^3/uL (0.8-4.8); Mean Corpuscular HGB Conc 33.6 g/dL (30.0-36.0); Mean Corpuscular Hemoglobin 30.7 pg (28.0-34.0); Mean Corpuscular Volume 91.3 fl (80-94); Monocytes # 0.1 10^3/uL (0.2-0.9); Monocytes % 0.9 %; Neutrophils # 9.52 10^3/uL (1.8-7.7); Neutrophils % 86.7 %; Nucleated Red Blood Cells % 0 %; Platelet Count 275 10^3/cmm (130-400); Red Blood Count 5.61 10^6/uL (4.1-5.3); Red Cell Distribution Width 12.2 % (12.1-15.1)
[2021-08-30 04:01] LABS: Alanine Aminotransferase 44 U/L (0-41); Albumin Level 4.1 g/dL (3.5-5.2); Alkaline Phosphatase 130 IU/L (40-130); Anion Gap 16.4 (5-19); Aspartate Amino Transferase 21 U/L (0-40); Blood Urea Nitrogen 15 mg/dL (6-20); Calcium 9.2 mg/dL (8.5-10.5); Carbon Dioxide 22 mmol/L (22-29); Chloride 99 mmol/L (98-107); Globulin 3.2 g/dL (1.3-4.6); Glucose 283 mg/dL (65-115); Magnesium 1.9 mg/dL (1.7-2.3); Osmolality Calculated 287 mOsm/kg (285-295); Phosphorus 3.5 mg/dL (2.5-4.5); Potassium 4.4 mmol/L (3.5-5.1); Sodium 133 mmol/L (136-145); Total Bilirubin 0.3 mg/dL (0.15-1.2); Total Protein 7.3 g/dL (6.6-8.7)
[2021-08-30] MEDS: predniSONE 20 mg Tablet 40 MG PO (06:06)
[2021-08-30] MEDS: diphenhydrAMINE 50 mg Capsule PO ×2 (06:07→09:04)
[2021-08-30 06:30] LABS: Glucose Point of Care 264 mg/dL (70-110)
[2021-08-30] MEDS: atorvastatin 40 mg Tablet 80 MG PO (09:04)
[2021-08-30] MEDS: aspirin 81 mg EC Tablet PO (09:04)
[2021-08-30] MEDS: ticagrelor 90 mg Tablet PO (09:04)
[2021-08-30] MEDS: sertraline 100 mg Tablet PO (09:04)
[2021-08-30] MEDS: pantoprazole DR 40 mg Tablet PO (09:04)
[2021-08-30] MEDS: sodium chloride 0.9% 1,000 ML 50 ML IV (09:30)
--- NOTE | 2021-08-30 09:47 | W.PM.OPSUD ---
Surgery/Procedure H&P Update DATE OF PROCEDURE: August 30, 2021 DATE H&P PERFORMED: 08/29/21 H&P UPDATE INFORMATION: I have reviewed H&P completed within last 30 days, I have examined patient prior to procedure and No changes to prior documentation PREOP DIAGNOSIS: Worsening angina/abnormal stress test PRIMARY INDICATION FOR PROCEDURE: Worsening angina/abnormal stress test PLANNED PROCEDURE: Operation Date: 08/30/21 10:00 Proposed Procedures p Cardiac Catheterization(Not Applicable) - Caden Ochoa M.D Possible percutaneous coronary intervention PATIENT REASSESSED PRIOR TO SEDATION, WITH NO CHANGE NOTED: Yes PHYSICAL EXAM: alert, oriented x 3, clear to auscultation bilaterally and regular rate & rhythm AIRWAY EVAL/ANESTHESIA PLAN: ASA III, Local Anesthesia, Risks, benefits & alternatives of sedation and/or procedure discussed and Patient agrees to continue as planned ADDITIONAL INFORMATION: Moderate sedation
--- NOTE | 2021-08-30 09:51 | PC.NURSE ---
off unit to produce laborer
--- NOTE | 2021-08-30 10:00 | XACV_ITS ---
Exam Room: [facility] Ht: 178 cm Wt: 91 kg BSA: 2.14 m2 Gender: Male : 1970 Any Known Allergies: Other Exam Priority: Routine Indication(s): - Abnormal nuclear perfusion study - Angina Procedure(s): Procedure Description: Diagnostic procedure Procedure Description: Left Heart Catheterization Procedure Description: Left ventriculography Procedure Description: Coronary Angiography Diagnostic Cath Status: Urgent Diagnostic Findings * Circumflex has no significant disease. * Right Coronary Artery has no significant disease. Patent prior stents.. * 1st Diagonal: Totally occluded ostial to proximal stent. Collateral blood flow from LAD is seen.. * Distal/apical Left Anterior Descending: obstructive 70% stenosis, WIN: 3 flow. Patent proximal vessel stent.. * Indication: Worsening angina/abnormal stress test. * Left Main has no disease. * Coronary angiography shows right dominance. Conclusions 1. Totally occluded 2. first 3. diagonal artery stent with collateral blood supply to diagonal 1 4. through LAD.. 5. Patent prior proximal LAD and proximal to mid RCA stents. 6. Apical LAD has significant stenosis however it is very distal and will be treated medically. 7. Mild left ventricular systolic dysfunction. Ejection fraction of 45%. Recommendations * Aggressive risk factor modification. * Outpatient cardiology follow-up in 4 weeks. Ventriculography Ejection Fraction: 45.0 % Pressures Phase:Rest AO : 112 / 65 ( 84 ) @ 11:06:00 AM 116 / 67 ( 87 ) @ 11:06:00 AM LV : 125 / 0 / 14 @ 11:05:00 AM 128 / -3 / 15 @ 11:06:00 AM 128 / -4 / 15 @ 11:06:00 AM Valves Phase:DefaultPhase AV : 0.0 @ 10:19:01 AM AV Mean Gradient: 0.0 @ 10:19:01 AM Clinical Evaluation EBL: 5mL-10mL Procedural Details Pre-Procedure Time Out. Identified patient by full name and date of as verbalized by the patient/guarantor. Does the consent match the physician's order: Yes. Accurate & Complete Informed Consent: Yes. Inpatient/Outpatient History & Physical on Chart: Yes. If H&P is completed, is and addenduem needed: No; If yes, is the addendum complete: N/A. Visualize and Verify Site with Patient/Guarantor: N/A. Relevant Radiology Images available: Yes. Pre-op teaching completed and patient verbalized understanding. The risks, benefits, and alternatives of sedation and/or procedure were discussed by physician. The patient agrees to continue. Procedure started. [facility] Clinical Fraility Score: 3: Managing Well. Rn Support Services Indications: Worsening Angina, Abnormal Stress Test. Chest Pain Symptom Assessment: Typical Angina Symptoms. Cardiovascular Instability: No, stable. Correct patient, site and procedure confirmed by cath team. Current diagnosis: Worsening Angina, Abnormal Stress Test. PERRLA. Strong, equal hand creative designer bilaterally. Lungs clear x 5 lobes. IV Site on Arrival: 18 gauge in the right anticubital. IV Fluids: 0.9% NaCl at KVO. 50 mL infused prior to laborer pole crew. Pre Procedural Pulses: bilateral posterior tibial was Doppled. Pre Procedural Pulses: bilateral dorsalis pedis was Doppled. Pre Procedural Pulses: bilateral radial was 3+. Oxygen started at 3liters/min via nasal canula. right groin was prepped with chloroprep then draped in the usual sterile fashion. right radial was prepped with chloroprep then draped in the usual sterile fashion. Physician notified. Baseline sample Acquired. HR: 65 BPM. Patient's family unavailable. Equipment: 5F - Femoral. Equipment: 5F - Radial. Equipment: 6F - Femoral. Equipment: 6F - Radial. Physician arrived. Physician scrubbed in. Heparinized Saline (2 units/mL), 1000 mL bag. Cardiac Cath Pack. ACIST Manifold Kit Model BT 2000. Immediate Pre-Procedure Time Out. Correct Patient: Yes; Correct Procedure: Yes; Correct Site: Yes; Correct Patient Position: Yes; Correct Supplies: Yes; Dried Flammable Prep: Yes; Blood Products Available: N/A;. Lidocaine 1% infiltrated to the right radial. Current Diagnosis : Chest Pain. Arterial access obtained. A 5 lithuanian TIG catheter in over wire. Multiple views taken of left coronary artery. Catheter redirected to the RCA. Multiple views taken of right coronary artery. Admit Source: In Patient. Catheter removed over the standard wire. A 5 lithuanian Angled Pig catheter in over wire. EDP Sample taken: LV 125/-1,14; HR: 86 BPM; SpO2: 95%. LV gram performed in GIBSON @ 10 mL/second for a total of 30 mL. Patient EF: Abnormal. EDP Sample taken: LV 128/-4,15; HR: 90 BPM; SpO2: 95%. Pullback taken: LV 128/-5,15; AO 112/65(84); Mean: 0mmHg, Peak to Peak: 0mmHg, SEP: 20sec/min; HR: 87 BPM; SpO2: 94%. Catheter removed over the standard wire. Physician review of films. Physician scrubbed out. A TR Band was successful obtaining hemostatsis at the Right Radial artery insertion site. TR band placed. Hemostasis obtained. Post Procedure: Pulses reassessed and unchanged. PERRLA. Strong, equal hand creative designer bilaterally. No VTE prophylaxis required. Medications waste: Lidocaine- 3 ml, Heparin- 1000 units, Versed 1 mg. Total IV fluids: 28 mL. Fluoro: 2:06. Contrast type used: Omnipaque 300 mg/mL, 150 mL bottle. [id number]. Post-op diagnosis: Occluded Diagonal artery stent. Complications: None. Estimated blood loss: 5mL-10mL. Responsiveness - Normal response to verbal stimuli; alert and oriented, PERRLA. Airway - Unaffected, no intervention required; spontaneous ventilation. Circulation: W/N/L, pulses unchanged. Nausea/Vomiting: No. Procedure completed. Vital chart was stopped. Patient transferred by bed to [facility]. Access Site Site: Right Radial artery Sheath Size: 6 Fr Hemostasis Method: TR Band Hemostasis Success: Successful Procedure Medications Start: 9:55 AM Stop: 9:55 AM Medication: Versed Amount: 1 mg Route: I.V. Start: 9:55 AM Stop: 9:55 AM Medication: Fentanyl Amount: 50 mcg Route: I.V. Start: 9:55 AM Stop: 9:55 AM Medication: Versed Amount: 1 mg Route: I.V. Start: 9:55 AM Stop: 9:55 AM Medication: Fentanyl Amount: 50 mcg Route: I.V. Start: 9:59 AM Stop: 9:59 AM Medication: Nitrogylcerin Amount: 200 mcg Route: I.A. Start: 9:59 AM Stop: 9:59 AM Medication: Heparin Amount: 5000 units Route: I.V. Start: 10:06 AM Stop: 10:06 AM Medication: Versed Amount: 1 mg Route: I.V. I, the attending physician, have reviewed and verified all procedure medications. Yes, all medications given per verbal order History/Risk Factors Hypertension: Yes Dyslipidemia: Yes Peripheral Arterial Disease (PAD): No Myocardial Infarction (IL): Yes Obesity: No Renal Disease: No Tobacco Use: Current/Recent(w/in 1 year) Prior Interventions PCI: Yes CABG: No Valve Surgery: No Date of PCI: 02/22/2018 Report Signatures Finalized by Caden Ochoa MD on 09/14/2021 02:28 PM
--- NOTE | 2021-08-30 10:30 | P.PN_ITS ---
Subjective Subjective: Patient underwent coronary angiogram today. Shows patent LAD and RCA stents. Diagonal stent is occluded with collateral supply to the diagonal artery. Apical LAD has significant stenosis which is very distal. No chest pain this morning Vitals/I&O/Wt Last Vital Signs Temp 97.7 F 08/30/21 08:00 Pulse 60 08/30/21 08:00 Resp 15 08/30/21 08:00 BP 118/58 08/30/21 08:00 Pulse Ox 96 08/30/21 08:00 08/29/21 08/30/21 08/30/21 22:59 06:59 14:59 Intake Total 240 / 960 480 / 1440 Balance 240 / 960 480 / 1440 Weight last 48 hrs Weight 200 lb 6.4 oz Weight 190 lb Physical Exam Narrative: GENERAL: Patient is alert, awake and oriented x3. [] NECK: No jugular vein distension. [] HEENT: No cyanosis. No icterus. No pallor. [] HEART: Regular S1 and S2. No murmur, rub or gallop. [] LUNGS: Clear to auscultate bilaterally. [] ABDOMEN: Soft, nontender and nondistended. Positive bowel sounds. No guarding, rebound or tenderness. [] CENTRAL NERVOUS SYSTEM: Grossly nonfocal. [] EXTREMITIES: Lower extremities with 1+ edema bilaterally. Pulses palpable in the lower extremities, both dorsalis pedis and posterior tibial. [] Data : 08/30/21 03:31 08/30/21 03:31 A&P Assessment and plan (1) Chest pain: Status: Acute (2) Ischemic cardiomyopathy: Status: Acute (3) Dyslipidemia (high LDL; low HDL): Status: Acute (4) Essential hypertension: Status: Acute (5) Type 2 diabetes mellitus: Status: Acute Qualifiers: Diabetes mellitus skilled nursing insulin use: without superintendent container terminal use Diabetes mellitus complication status: with hyperglycemia Qualified Code(s): E11.65 - Type 2 diabetes mellitus with hyperglycemia (6) Abnormal stress test: Status: Acute Plan Coronary angiogram demonstrates occluded diagonal artery stent however it is chronic as has collateral blood supply. Patent LAD and RCA stents. Apical LAD has a significant stenosis however is very distal. Medical management. Continue aspirin and Brilinta. High intensity statin therapy Add Imdur. Continue metoprolol Thank you for involving us with care of this patient. We will continue to follow. Please call with questions. Attestations Medical Necessity Statement*: Care expected to cross 2 midnights. Coding Level of Care Code Acute Hand Tier for Criselda Us Diagnoses Chest pain R07.9 Ischemic cardiomyopathy I25.5 Dyslipidemia (high LDL; low HDL) E78.5 Essential hypertension I10 Type 2 diabetes mellitus E11.65 Diabetes mellitus superintendent container terminal insulin use: without skilled nursing use Diabetes mellitus complication status: with hyperglycemia Abnormal stress test R94.39
[2021-08-30 12:23] LABS: Glucose Point of Care 250 mg/dL (70-110)
--- NOTE | 2021-08-30 12:30 | PM.DCS ---
Discharge Providers Date of Admission: 08/29/21 18:40 Date of Discharge: August 30, 2021 Attending Provider at Admission: Justin Acharya MD Attending Provider at Discharge: Justin Acharya MD Primary Care Provider: HELEN Ji Diagnoses at Discharge Discharge Diagnosis (1) Chest pain: Status: Acute (2) Ischemic cardiomyopathy: Status: Acute (3) Dyslipidemia (high LDL; low HDL): Status: Acute (4) Essential hypertension: Status: Acute (5) Type 2 diabetes mellitus: Status: Acute Qualifiers: Diabetes mellitus detention insulin use: without detention use Diabetes mellitus complication status: with hyperglycemia Qualified Code(s): E11.65 - Type 2 diabetes mellitus with hyperglycemia (6) Abnormal stress test: Status: Acute Reason for Visit Reason for Visit: cp, [facility] Hospital Course Hospital Course Nicola Coyle is a 51 year old male with a past medical history of CAD, CVA, history of stenting, hypertension, hyperlipidemia, diabetes mellitus who presents to [facility] for chest pain.? Patient was admitted to [facility] for chest pain Cardiac stress test 1.? Abnormal myocardial perfusion imaging with large sized infarct seen in LAD, ?left circumflex and RCA territories with significant moderate sized area of ?jose alfredo-infarct ischemia in LAD territory. ?2.? LV systolic function is moderately reduced with EF of 40%. Cardiac echo ?LV systolic function is borderline low with EF of 45-50%. ?Mild aortic regurgitation ?Trace tricuspid regurgitation ?Compared to prior echocardiogram from 04/19/2020, no significant ?changes are seen -Given his persistent chest pain, positive stress test, underwent coronary angiogram as inpatient by -Coronary angiogram showed patent LAD, RCA stent, diagonal stent is occluded with collateral supply to the diagonal artery, apical LAD had significant stenosis which is very distal, -Cardio recommended medical management, continue aspirin, Brilinta, statin, add Imdur -We will have patient follow-up with cardiology as outpatient Physical Exam Const: COMMON NORMALS: no acute distress and patient oriented x3 Resp: COMMON NORMALS: normal respiratory effort, No retractions, No use of accessory muscles and clear to auscultation bilaterally AUSCULTATION: clear to auscultation bilaterally Cardio: COMMON NORMALS: regular rate, regular rhythm, S1 normal heart sound present and S2 normal heart sound present RATE: regular rate RHYTHM: regular rhythm HEART SOUNDS: S1 normal heart sound present and S2 normal heart sound present GI: COMMON NORMALS: Normal to inspection, nondistended, normoactive bowel sounds present, Soft to palpation, non-tender, No hepatosplenomegaly present, no masses and no bruits PALPATION: Yes Soft to palpation and Yes No hepatosplenomegaly present Extremity: COMMON NORMALS: no pedal edema Neuro: COMMON NORMALS: patient oriented x3 Psych: COMMON NORMALS: mental status grossly normal Discharge Data Studies Completed and Pending Completed Studies During Hospitalization Category Date Time Status Sestamibi Stress Test Request Routine Exams 08/29/21 07:02 Draft XR chest 1V portable [id number] Stat Exams 08/28/21 15:36 Completed NM julia perf SPECT r/s* [id number] Routine Nuc Med 08/29/21 20:09 Completed CV. echo complete* [id number] Routine Ultrasound 08/28/21 20:09 Completed US abdomen limited [id number] Urgent Ultrasound 08/28/21 20:09 Completed Pending at discharge Category Date Time Status PHYS THER request for service Routine Exams 08/30/21 10:00 Ordered Sestamibi Stress Test Request Routine Exams 08/28/21 20:09 Stop Req Complete Blood Count w/Auto AM LABS Lab 08/31/21 04:00 Ordered Comprehensive Metabolic Panel AM LABS Lab 08/31/21 04:00 Ordered Magnesium AM LABS Lab 08/31/21 04:00 Ordered Phosphorus AM LABS Lab 08/31/21 04:00 Ordered Radiology Impressions Chest X-Ray 08/28/21 15:36 Impression: Negative chest. Abdomen Ultrasound 08/28/21 20:09 IMPRESSION: Normal RIGHT upper quadrant ultrasound. Laboratory Results WBC 11.0 10^3/uL (4.0-10.0) H 08/30/21 03:31 RBC 5.61 10^6/uL (4.1-5.3) H 08/30/21 03:31 Hgb 17.2 g/dL (11.7-16.6) H 08/30/21 03:31 Hct 51.2 % (42.0-52.0) 08/30/21 03:31 MCV 91.3 fl (80-94) 08/30/21 03:31 MCH 30.7 pg (28.0-34.0) 08/30/21 03:31 MCHC 33.6 g/dL (30.0-36.0) 08/30/21 03:31 RDW 12.2 % (12.1-15.1) 08/30/21 03:31 Plt Count 275 10^3/cmm (130-400) 08/30/21 03:31 MPV 10.0 fL (7.4-10.4) 08/30/21 03:31 Neut % (Auto) 86.7 % 08/30/21 03:31 Lymph % (Auto) 12.0 % 08/30/21 03:31 Simpson % (Auto) 0.9 % 08/30/21 03:31 Eos % (Auto) 0.0 % 08/30/21 03:31 Baso % (Auto) 0.1 % 08/30/21 03:31 Neut # (Auto) 9.52 10^3/uL (1.8-7.7) H 08/30/21 03:31 Lymph # (Auto) 1.3 10^3/uL (0.8-4.8) 08/30/21 03:31 Simpson # (Auto) 0.1 10^3/uL (0.2-0.9) L 08/30/21 03:31 Eos # (Auto) 0.0 10^3/uL (0.0-0.8) 08/30/21 03:31 Baso # (Auto) 0.0 10^3/uL (0.0-0.1) 08/30/21 03:31 Nucleated RBC % (auto) 0 % 08/30/21 03:31 Nucleated RBCs # 0.0 /100WBC 08/30/21 03:31 D-Dimer 0.37 ug/mIFEU (0-0.59) 08/28/21 16:00 Sodium 133 mmol/L (136-145) L 08/30/21 03:31 Potassium 4.4 mmol/L (3.5-5.1) 08/30/21 03:31 Chloride 99 mmol/L (98-107) 08/30/21 03:31 Carbon Dioxide 22 mmol/L (22-29) 08/30/21 03:31 Anion Gap 16.4 (5-19) 08/30/21 03:31 BUN 15 mg/dL (6-20) 08/30/21 03:31 Creatinine 0.5 mg/dL (0.7-1.2) L 08/30/21 03:31 GFR Calculation 176.0 mL/min (90-130) H 08/30/21 03:31 Glucose 283 mg/dL (65-115) H 08/30/21 03:31 POC Glucose 250 mg/dL (70-110) H 08/30/21 11:58 Estimat Average Glucose 249 08/28/21 16:00 Hemoglobin A1c 10.3 % (4.0-6.0) H 08/28/21 16:00 Calculated Osmolality 287 mOsm/kg (285-295) 08/30/21 03:31 Calcium 9.2 mg/dL (8.5-10.5) 08/30/21 03:31 Phosphorus 3.5 mg/dL (2.5-4.5) 08/30/21 03:31 Magnesium 1.9 mg/dL (1.7-2.3) 08/30/21 03:31 Total Bilirubin 0.3 mg/dL (0.15-1.2) 08/30/21 03:31 AST 21 U/L (0-40) 08/30/21 03:31 ALT 44 U/L (0-41) H 08/30/21 03:31 Alkaline Phosphatase 130 IU/L (40-130) 08/30/21 03:31 Troponin T Baseline 8 ng/L (0-15) 08/29/21 17:17 Troponin T 120 Minute 6.88 ng/L (0-15) 08/29/21 19:40 Delta Troponin T 0.88 ABS# (0-10) 08/29/21 19:40 Troponin T Hi Sens 6Hr 6.83 ng/L (0-15) 08/29/21 22:52 Troponin T Hi Sens 6Hr Delta -1.17 ng/L (0-12) L 08/29/21 22:52 NT-Pro-B Natriuret Pep 35 pg/mL (0-125) 08/29/21 03:52 Total Protein 7.3 g/dL (6.6-8.7) 08/30/21 03:31 Albumin 4.1 g/dL (3.5-5.2) 08/30/21 03:31 Globulin 3.2 g/dL (1.3-4.6) 08/30/21 03:31 Lipase 82 U/L (13-60) H 08/28/21 16:00 TSH 2.79 uIU/mL (0.27-4.20) 08/29/21 03:52 Vitals Last Vital Signs Temp 98.1 F 08/30/21 11:49 Pulse 68 08/30/21 11:49 Resp 12 08/30/21 11:49 BP 104/58 08/30/21 11:49 Pulse Ox 95 08/30/21 11:49 Discharge Plan Discharge Patient Disposition: Home Condition: Stable Prescriptions: New isosorbide mononitrate 30 mg Tablet Extended Release 24 Hr 30 mg PO DAILY 30 Days Qty: 30 0RF Continued metformin 1,000 mg tablet 1,000 mg PO BID Qty: 180 3RF sertraline 100 mg tablet 100 mg PO BID Qty: 90 3RF metoprolol tartrate 50 mg tablet 50 mg PO BID Qty: 180 3RF zolpidem [Ambien] 10 mg tablet 10 mg PO BEDTIME 0RF Label Comments: Take 1 tab po at bedtime glimepiride 2 mg tablet 2 mg PO DAILY 0RF atorvastatin 80 mg tablet 80 mg PO DAILY 0RF fenofibrate nanocrystallized 145 mg tablet 145 mg PO BEDTIME 0RF Januvia 100 mg tablet 100 mg PO DAILY 0RF hydrocodone-acetaminophen 10-325 mg tablet 0.5 - 1 tab PO .Q4-6H MDD 2 tabs PRN (Reason: Pain) 0RF lisinopril 10 mg tablet 10 mg PO DAILY 0RF ondansetron 4 mg tablet,disintegrating 4 mg PO Q6H PRN (Reason: Nausea And Vomiting) 0RF Brilinta 90 mg Tablet 90 mg PO BID 0RF aspirin 81 mg Tablet,Delayed Release (Dr/Ec) 81 mg PO DAILY 0RF Changed metoprolol tartrate 50 mg tablet 25 mg PO BID Qty: 180 3RF Discharge Orders: Discharge Order (Routine); Ordered 08/30/21 Ordered By: Justin Acharya Referrals: Abelino Varma FNP [Primary Care Provider] - (Please call Wednesday to schedule a follow up appointment.) Caden Ochoa M.D [Physician] - 2 weeks (Please call Wednesday to schedule a follow up appointment.) Discharge Diet: Cardiac Discharge Activity: Resume usual activity Patient Instructions: Isosorbide Mononitrate (By mouth), Chest Pain (ED), Chest Pain Stoplight, Opioid Safety, Post Angiogram Home Care Instructions Activity Restrictions/Additional Instructions: - If any recurrent chest pain go to the emergency room Discharge Attestations Time Spent in Discharge Care*: less than 30 min Quality Metrics Clinical Quality Measures [ No reported AMI, CVA or VTE this stay] Coding Level of Care Code Acute [facility] note Diagnoses Chest pain R07.9 Ischemic cardiomyopathy I25.5 Dyslipidemia (high LDL; low HDL) E78.5 Essential hypertension I10 Type 2 diabetes mellitus E11.65 Diabetes mellitus detention insulin use: without intermediate designer use Diabetes mellitus complication status: with hyperglycemia Abnormal stress test R94.39
[2021-08-30] MEDS: insulin lispro 100 unit/1 mL SUBCUT (13:10)
== END 2021-08-30 15:32 | disposition home or self-care (01) | DRG 287 ==
LOC: ER 18:47 → MEDSURG 08-29 00:39
PROVIDERS: Internal Medicine; Admitting Provider Family Medicine; Emergency Provider Emergency Medicine; PCP Nurse Practitioner; Visit Provider Family Medicine
PROC: B2151ZZ Fluoroscopy of Left Heart using Low Osmolar Contrast (ICD-10-PCS; principal; 2021-08-30 10:00)
DX: T82.855A Stenosis of coronary artery stent, initial encounter (principal); Y71.8 Miscellaneous cardiovascular devices associated with adverse incidents, not elsewhere classified; I25.119 Atherosclerotic heart disease of native coronary artery with unspecified angina pectoris; I25.82 Chronic total occlusion of coronary artery; F41.9 Anxiety disorder, unspecified; I25.2 Old myocardial infarction; E11.65 Type 2 diabetes mellitus with hyperglycemia; E11.42 Type 2 diabetes mellitus with diabetic polyneuropathy; E78.5 Hyperlipidemia, unspecified; G47.00 Insomnia, unspecified; F17.210 Nicotine dependence, cigarettes, uncomplicated; R91.1 Solitary pulmonary nodule; Z91.041 Radiographic dye allergy status; I10 Essential (primary) hypertension; I25.5 Ischemic cardiomyopathy; Z79.02 Long term (current) use of antithrombotics/antiplatelets; Z79.82 Long term (current) use of aspirin; Z79.891 Long term (current) use of opiate analgesic; Z79.84 Long term (current) use of oral hypoglycemic drugs
CPT/HCPCS: 36415; 36416; 71045; 76705; 78452; 80053; 82962; 83036; 83690; 83735; 83880; 84100; 84443; 84484; 85025; 85378; 93005; 93017; 93306; 93458; 94664; 96372; 96374; 96375; 99152; 99285; A9500; C1769; C1887; C1894; G0378; J1644; J1650; J1815; J2250; J2270; J2405; J2785; J3010; J7030; J7512; Q0163; Q9967

== ENCOUNTER 2021-09-30 12:25 | Emergency (ER) | payer MEDICARE, OTHER, SELFPAY ==
[2021-09-30 12:36] VITALS: BP 122/81; PULSE 85; RESP 16; TEMP 36.6; O2SAT 98; BMI 30.1
--- NOTE | 2021-09-30 13:11 | W.ED.ANXIETY ---
HPI - Anxiety General: Chief Complaint: Anxiety Stated Complaint: anxiety, can't sleep Time Seen by Provider: 09/30/21 12:43 Source: patient Mode of arrival: ambulatory Limitations: no limitations History of Present Illness: 51 yo male preesents with complaitns of anxiety and insomnia. In the past he has been on Ambien and Zoloft. He states been several days since he slept he is awake alert oriented answers questions well. Patient is requesting admission to the [facility] so that he can sleep. He denies any suicidal or homicidal ideations no hallucinations auditory or visual. Normal thought pattern. No physical complaints. MD complaint: anxiety Onset (ago): day(s) Provoking factors: none known Relieving factors: nothing Exacerbating factors: nothing Associated symptoms: Deny anorexia, chest pain, chills, confusion, diaphoresis, fever(s), headache(s), malaise, nausea, palpitations, short of breath, syncope, vomiting or weakness Review of Systems Const: Denies: fever(s), chills, fatigue, malaise or diaphoresis ENMT: Denies: throat pain, ear or mastoid pain, nasal discharge or nasal congestion Card: Denies: chest pain, palpitations or syncope Resp: Denies: dyspnea, productive cough or non-productive cough GI: Denies: abdominal pain, nausea or vomiting : Denies: flank pain, difficulty urinating, dysuria, urinary frequency or urinary urgency Skin/Breast: Denies: rash or pruritus Neuro: Denies: headache(s) or confusion PFSH ED PFSH: Medical History Anxiety History of WI (myocardial infarction) History of polyneuropathy Hx of hyperlipidemia Insomnia disorder Lung nodule Rectal fistula Surgical History H/O total knee replacement History of foot surgery History of rectal surgery History of testicular surgery Hx of appendectomy Hx of shoulder surgery Hx of tonsillectomy Hx of umbilical hernia repair Family History Mother Cancer Diabetes Denies family history of CAD (coronary artery disease) Clotting disorder Dementia Chronic kidney disease (CKD) Suicide Anesthesia complication Bleeding disorder Lung disease Stroke Social History Smoking and tobacco status: current every day smoker cigarettes Packs smoked per day: 1 Alcohol intake: never Physical Exam Const: COMMON NORMALS: no acute distress GENERAL APPEARANCE: cooperative and comfortable ORIENTATION/CONSCIOUSNESS: Yes awake, Yes oriented to person, Yes oriented to place and Yes oriented to time HENMT: COMMON NORMALS: normocephalic, atraumatic and hearing grossly normal bilaterally HEAD & SCALP: normocephalic and atraumatic Neuro: SENSORIUM/ORIENTATION: Yes oriented to person, Yes oriented to place and Yes oriented to time Course Vital Signs: Vital signs: Vital Signs Temperature 98 F 09/30/21 12:36 Pulse Rate 85 09/30/21 12:36 Respiratory Rate 16 09/30/21 12:36 Blood Pressure 113/70 09/30/21 13:35 Pulse Oximetry 98 09/30/21 12:36 Oxygen Delivery Me thod 09/30/21 12:36 MDM - Anxiety Medical Decision Making At this point there is no indication for admission to neuropsych reviewed with the patient that for the specific issues he is having we would not admit someone to neuropsych. Did refer him to behavioral health continue to use the previously prescribed medications. Medical Records I reviewed the patient's medical records. Lab Data I reviewed the patient's lab results. Discharge Plan Discharge Patient Disposition: Home Clinical Impression: Anxiety, Essential hypertension Condition: Stable Prescriptions: New buspirone 7.5 mg tablet 7.5 mg PO BID Qty: 60 0RF No Action metformin 1,000 mg tablet 1,000 mg PO BID Qty: 180 3RF sertraline 100 mg tablet 100 mg PO BID Qty: 90 3RF zolpidem [Ambien] 10 mg tablet 10 mg PO BEDTIME Label Comments: Take 1 tab po at bedtime glimepiride 2 mg tablet 2 mg PO DAILY atorvastatin 80 mg tablet 80 mg PO DAILY fenofibrate nanocrystallized 145 mg tablet 145 mg PO BEDTIME Januvia 100 mg tablet 100 mg PO DAILY hydrocodone-acetaminophen 10-325 mg tablet 0.5 - 1 tab PO .Q4-6H MDD 2 tabs PRN (Reason: Pain) ondansetron 4 mg tablet,disintegrating 4 mg PO Q6H PRN (Reason: Nausea And Vomiting) Brilinta 90 mg Tablet 90 mg PO BID aspirin 81 mg Tablet,Delayed Release (Dr/Ec) 81 mg PO DAILY metoprolol tartrate 50 mg tablet 25 mg PO BID Qty: 180 3RF lisinopril 10 mg tablet 5 mg PO DAILY Qty: 0 0RF Discharge Orders: Discharge ED (Routine); Ordered 09/30/21 Ordered By: Stephen Olea Referrals: Abelino Varma, MAINTENANCE PORTER [Primary Care Provider] - Discharge Diet: Usual diet Discharge Activity: Increase activity as tolerated Patient Instructions: Opioid Safety Activity Restrictions/Additional Instructions: Follow-up with Behavioral Health Care as soon as you are able to do the walk-in intake. 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
[2021-09-30 13:35] VITALS: BP 113/70
== END 2021-09-30 13:34 | disposition home or self-care (01) ==
PROVIDERS: Emergency Provider Family Medicine; PCP Nurse Practitioner
DX: F41.9 Anxiety disorder, unspecified (principal); I10 Essential (primary) hypertension; Z79.84 Long term (current) use of oral hypoglycemic drugs; Z79.82 Long term (current) use of aspirin; I25.2 Old myocardial infarction; E78.5 Hyperlipidemia, unspecified; F17.210 Nicotine dependence, cigarettes, uncomplicated
CPT/HCPCS: 99283